=== PATIENT | female | born 1960 | race Caucasian/White ===

== ENCOUNTER → 2016-08-27 | Outpatient (CLI) | payer OTHER ==
[2016-08-27 15:02] LABS: Anion Gap 11 mmol/L; Blood Urea Nitrogen 20 mg/dL (7-17); Carbon Dioxide 26 mmol/L (22-30); Chloride 105 mmol/L (98-107); Glucose 104 mg/dL (74-99); Non-African American GFR(MDRD) >60 (>60 ml/min/1.73 sqM); Potassium 3.8 mmol/L (3.5-5.1); Sodium 142 mmol/L (137-145)
[2016-08-27 15:07] LABS: Basophils # (A) 0.1 k/uL (0-0.2); Basophils % (A) 1 %; CH 30.7; CHCM 33.5; Eosinophils # (A) 0.4 k/uL (0-0.7); Eosinophils % (A) 5 %; HCT 43.7 % (34.0-46.0); HDW 2.15; HGB 14.3 gm/dL (11.4-16.0); Luc # (Auto) 0.21; Luc % (Auto) 3; Lymphocytes # (A) 2.2 k/uL (1.0-4.8); Lymphocytes % (A) 28 %; MCH 30.2 pg (25.0-35.0); MCHC 32.8 g/dL (31.0-37.0); Monocytes # (A) 0.3 k/uL (0-1.0); Monocytes % (A) 4 %; Neutrophils # (A) 4.7 k/uL (1.3-7.7); Neutrophils % (A) 60 %; RBC 4.75 m/uL (3.80-5.40); RDW 12.8 % (11.5-15.5); WBC 7.9 k/uL (3.8-10.6)
== END | disposition home or self-care (01) ==
LOC: LABPAT 14:04
PROVIDERS: ATTEND Obstetrics & Gynecology
DX: Z01.818 Encounter for other preprocedural examination (principal); N81.4 Uterovaginal prolapse, unspecified; I10 Essential (primary) hypertension
CPT/HCPCS: 80051; 82565; 82947; 84520; 85025; 86850; 86900; 86901; 87086; 93005

== ENCOUNTER 2016-09-04 07:27 | Day surgery (SDC) | payer OTHER ==
[2016-08-30 15:58] VITALS: BMI 32.1
--- NOTE | 2016-09-03 08:38 | HP ---
DATE OF ADMISSION: 09/04/2016 This is a 56-year-old white female, 4, para 3-0-1-3, who presented for evaluation with complaint of increasing urine leakage with cough, sneeze and laugh. She was evaluated by Dr. Jaime and they have elected to proceed with transvaginal tape sling. She presented to my care with question of utility vaginal hysterectomy and cystocele repair at the same time. Patient is currently sexually active, she denies dyspareunia. She does admit to an increasing heaviness, fullness and bulge of the perineal body. She has had no postmenopausal bleeding, no vasomotor symptoms, but does report increased pelvic pressure. Past medical history is significant for hypertension and thyroid disease. PAST SURGICAL HISTORY: Bunionectomy in 1993, excision of ectopic in the past, right breast lumpectomy of benign pathology 2015, thyroidectomy 2011. CURRENT MEDICATIONS: 1. Black cohosh orally daily. 2. Calcium 600 mg pills twice daily. 3. L-thyroxine 150 ( ) daily. 4. Lisinopril 40 mg daily. 5. Norvasc 10 mg daily. 6. Pravastatin 20 mg once daily. 7. Triamterene hydrochlorothiazide 37.5/25 mg capsules once daily. 8. Venlafaxine 37.5 mg extended release tablets once daily. ALLERGIES: None known. FAMILY HISTORY: Significant for breast cancer in her mother and aunt. REPRODUCTIVE HISTORY: Vaginal deliveries x3, excision of ectopic in the past, side unknown. SOCIAL HISTORY: The patient is currently a smoker 1 pack per day. She admits to light alcohol use, denies recreational drug use. Review of systems is otherwise negative. On exam, this is a pleasant white female. She is 5 feet 10-1/2 inches, 234 pounds., BMI 33, blood pressure 124/80. HEENT exam reveals normal range of motion in the neck, no obvious lymphadenopathy, no thyromegaly. Good dentition. Breast exam reveals them to be bilaterally symmetric to inspection, no skin changes, nipple discharge, axillary adenopathy or discernible lesions or masses. Abdomen is soft, moderately obese, nontender, no hepatosplenomegaly, no CVA tenderness, no hernias. Chest is clear to auscultation in all hills anteriorly and posteriorly. Cardiac exam reveals regular rate and rhythm with no murmur, click or rub. Genitourinary examination reveals a grade 2 to 3 cystocele, normal external genitalia, normal multiparous-appearing cervix, a grade 2 to 3 uterine prolapse is noted. No adnexal tenderness or fullness. Rectal exam reveals no obvious rectocele, good sphincter tone, FIT negative stool. Neurologic and psychiatric examinations are intact fully. IMPRESSION: Genuine stress urinary incontinence, cystocele, uterine prolapse, all increasingly symptomatic, patient wishing surgical repair. PLAN: I reviewed with the patient in detail the risks, benefits, and alternatives of this repair. We have reviewed the risk of bleeding, infection, perforation or damage to bowel, bladder, ureters, indeed any pelvic or abdominal organs. Second opinion has been offered and declined. The ACOG pamphlet on this procedure have been given to the patient for her thorough review. We reviewed the risks of anesthesia, aspiration, nerve damage or even . All questions answered to the patient's full satisfaction, and I believe she understands our discussion with no further question or concerns.
[~2016-09-04 07:27] MED LIST: DEXAMETHASONE SOD PHOSPHATE 10 MG/ML 1 ML VIAL IV ONE; HYDROmorphone 1 MG/ML 1 ML SYRINGE IVP PRN; MIDAZOLAM 2 MG/2 ML VIAL IV PRN; ONDANSETRON 4 MG/2 ML VIAL IVP ONE; ceFAZolin 2 GM in SODIUM CHLORIDE 0.9% 100 ML IVPB ONE
[2016-09-04] MEDS ORDERED: LIDOCAINE 1% 20 ML VIAL (10MG/ML) FOR IV START INTRADERMA ONE (08:16)
[2016-09-04] MEDS: LACTATED RINGERS 1,000 ML IV SCH ×2 (08:16→17:25)
[2016-09-04] MEDS ORDERED: SCOPOLAMINE 1.5MG/72HR PATCH TRANSDERM ONE (08:24)
[2016-09-04] MEDS ORDERED: MIDAZOLAM 2 MG/2 ML VIAL ONE (09:21)
[2016-09-04] MEDS ORDERED: MORPHINE SULFATE (PF) 0.3 MG/0.3 ML SYR ONE (09:21)
[2016-09-04] MEDS ORDERED: fentaNYL (PF) 50 MCG/ML 2 ML AMP ONE (09:21)
[2016-09-04] MEDS ORDERED: VASOPRESSIN 20 UNIT/ML 1 ML VIAL SQ ONE (09:40)
[2016-09-04] MEDS ORDERED: BACITRACIN 500 UNIT/GM OINT 28.4 GM TUBE TOPICAL ONE (09:41)
[2016-09-04] MEDS: GENTAMICIN 120 MG in SODIUM CHLORIDE 0.9% 100 ML IVPB ONE ×2 (09:42→09:45)
[2016-09-04] MEDS ORDERED: LACTATED RINGERS 1,000 ML IV ONE ×2 (10:13)
[2016-09-04] MEDS ORDERED: ONDANSETRON 4 MG/2 ML VIAL IVP PRN (10:49)
[2016-09-04] MEDS ORDERED: Acetaminophen-Codeine 300-30mg TAB PO PRN (10:49)
[2016-09-04] MEDS ORDERED: SIMETHICONE 80 MG CHEWABLE PO PRN (10:49)
[2016-09-04] MEDS ORDERED: IBUPROFEN 600 MG TAB PO PRN (10:49)
[2016-09-04] MEDS ORDERED: KETOROLAC 30 MG/ML 1 ML VIAL IVP PRN (10:49)
--- NOTE | 2016-09-04 10:49 | P.OP ---
Date of Procedure: 09/04/16 Preoperative Diagnosis: Mixed urinary incontinence, cystocele, uterine prolapse Postoperative Diagnosis: Same, normal-appearing ovaries, suspicion of bladder cancer per Dr. Jaime Procedure(s) Performed: Vaginal hysterectomy, cystocele repair. Anesthesia: spinal Surgeon: Betsey Kim Production Engineer #1: Anisa Mendez Estimated Blood Loss (ml): 125 IV fluids (ml): 1,000 Urine output (ml): 150 Pathology: other Condition: stable (Cervix and uterus) Disposition: PACU Description of Procedure: Patient is brought to the operating suite and a spinal with Duramorph is placed without difficulty. Preoperative antibiotics are given. The appropriate timeout was performed to assure proper patient and procedural identification. Patient is placed in the dorsal lithotomy position, the cervix, vagina, perineum are all prepped and draped in the usual sterile fashion. Weighted speculum was placed into the vagina. Bladder is drained for approximately 150 mL of clear yellow urine. Anterior lip of the cervix is grasped with a double- tooth tenaculum. Cervix is injected circumferentially with dilute Pitressin solution. A [place] blade scalpel was used to incise the mucosa with a V like positioning in the back. A sponge was used to keep the mucosa swept well from the operative field to avoid bladder and/or ureteral injury. Peritoneum was entered at 6:00, suture tied with 2-0 Vicryl and the large billed speculum was placed. The right uterosacral cardinal ligament is identified, clamped cut and held with a 0 Vicryl suture. The same is performed on the left side. Vessels are identified , clamped cut and suture ligated. 2 additional pedicles are taken superior to the vessels. The uterus is then "walked out" posteriorly. Anterior peritoneum was entered. Leanne clamps are placed across the final pedicles and the uterus and cervix are removed. A sponge stick is used to evaluate the ovaries, these appear atrophic and normal to inspection and therefore left in situ. Hemostasis is very good. The billed speculum is then replaced the shallow speculum and the 2-0 Vicryl suture is brought around circumferentially to close the peritoneum in a pursestring fashion. The uterosacral cardinal ligaments are then brought across to the opposite ligament and vaginal mucosa, closing the vaginal vault. An additional [id number] sutures taken inferior to this for vaginal cough closure. The anterior peritoneum was then held with Allis clamps. The mucosa is injected with the same dilute Pitressin solution. Metzenbaum scissors are used in the midline to undermine and then open the mucosa. Allis clamps are used to hold the mucosa laterally bilaterally. The Horton catheter is then placed into the bladder and the urine is noted to be clear. Dr. Jordan then hips to perform his transvaginal tape procedure, please see dictated dictation. When his procedure is completed, 2-0 Vicryl suture is used to close the anterior vaginal mucosa and a running locking stitch. The vagina is packed with one- inch iodophor gauze. Dr. Jordan then proceeded with his cystoscopy, please see separately dictated report for details. Patient is brought back to the recovery room in very good condition with stable vital signs. Blood pressure is 99/63, pulse 75, 100% O2 sat, respirations 14.
--- NOTE | 2016-09-04 11:17 | P.OP ---
Date of Procedure: 09/04/16 Preoperative Diagnosis: Mixed Urinary Incontinence Postoperative Diagnosis: Same, Bladder Tumors Procedure(s) Performed: Obtryx Transobturator Sling, Cystoscopy with Excisional Biopsies. Anesthesia: CHERELLE Surgeon: Jonathon Jaime Highway Construction Inspector #1: Betsey Kim Estimated Blood Loss (ml): 125 Pathology: other (2 bladder tumors.) Condition: stable Disposition: PACU Indications for Procedure: She is a 56 year old female with mixed incontinence, which requires the use of 1 -2 pads daily. The stress component is predominant. Examination reveals a Grade 2 cystocele, along with urethral hypermobility. She is scheduled to undergo an Obtryx TOT sling, and Dr. Kim will perform a TVH with anterior repair. The procedure was reviewed with the patient in detail, including the rationale for the procedure, alternative treatment options, and potential risks. The controversy regarding the use of synthetic slings was discussed. I also explained to her the possibility that her urgency will worsen following the procedure. Operative Findings: Small papillary tumor cephalad to the right ureteral orifice. Pedunculated papillary tumor arising from left posterior vesical neck. Description of Procedure: I entered the operating room as Dr. Kim was completing the vaginal hysterectomy. The patient was positioned in the dorsal lithotomy position, with her legs supported in candycane stirrups. The patient's condition was stable. After completing the hysterectomy, Dr. Kim exposed the cystocele with a midline vaginal incision. The dissection was continued in the submucosal plane laterally on each side, to the inferior pubic ramus. The scalpel was used to make bilateral groin incisions at the level of the clitoris. Subcutaneous tissues were spread with a hemostat. Each of the helical needles were passed through the respective groin incision, and turned such that the needle tip wrapped around the pubis. The needle tips were guided digitally into the vaginal incision. The Obtryx graft, which had been previously soaked in antibiotic solution, was secured to the needle tips in the standard fashion. The needles were then withdrawn, and the position of the graft was adjusted such that it overlie the mid urethra, as desired. With a hemostat placed between the graft and the urethra to prevent tension of the graft over the urethra, the plastic sheath was removed from the ends of the graft. The ends of the graft were cut beneath the skin incisions, and these incisions were closed using 4-0 Vicryl suture in a subcuticular fashion. Hemostasis within the vaginal incision was adequate, and Dr. Kim then proceeded to complete the cystocele repair. Vaginal packing was placed. Cystoscopy was performed. The 30 lens was used to introduce the 19-Portuguese Storz cystoscopic sheath through the urethra and into the bladder under direct vision. The urethra and bladder were unremarkable. There was no evidence of perforation. Both ureteral orifices were of normal anatomic location and configuration, and clear urine effluxed from both. A small papillary tumor was seen cephalad to the right ureteral orifice. A pedunculated papillary tumor arose from the left posterior vesicle neck. Biopsy forceps were used to excise each of these lesions. The tissue was saved and sent for pathologic examination. The Bugbee electrode was used to fulgurate the biopsy sites, obtaining excellent hemostasis. The Horton catheter was replaced into the bladder. The return was clear. All sponge and needle counts were correct. The patient tolerated the procedure well was taken to the recovery room in stable condition. EBL and Fluids given reflect the entire procedure.
[2016-09-04] MEDS ORDERED: NALOXONE 0.4 MG/ML 1 ML VIAL IV PRN (11:51)
[2016-09-04] MEDS ORDERED: MORPHINE SULFATE 4 MG/ML SYRINGE IVP PRN (11:51)
[2016-09-04] MEDS ORDERED: NALBUPHINE 10 MG/ML AMPUL IV PRN (11:51)
[2016-09-04] MEDS ORDERED: ALBUTEROL NEBULIZED 2.5 MG/3 ML INHALATION PRN (12:50)
[2016-09-04] MEDS: diphenhydrAMINE 50 MG/ML 1 ML VIAL IVP PRN ×2 (14:54→21:30)
[2016-09-04] MEDS ORDERED: ceFAZolin 1 GM in SODIUM CHLORIDE 0.9% 100 ML IVPB SCH (16:00)
[2016-09-04] MEDS: ceFAZolin 1,000 MG in DEXTROSE/WATER 1 50ML.BAG IVPB SCH ×2 (17:18→17:25)
[2016-09-04] MEDS ORDERED: GENTAMICIN IN NACL ISO-OSM PMX 80 MG in SALINE 1 100ML.BAG IVPB ONE (18:00)
[2016-09-04] MEDS ORDERED: GENTAMICIN 80 MG in SODIUM CHLORIDE 0.9% 100 ML IVPB ONE (18:00)
[2016-09-04] MEDS ORDERED: VENLAFAXINE HCL 37.5 MG TAB PO SCH (21:00)
[2016-09-05] MEDS ORDERED: LEVOTHYROXINE 75 MCG TAB PO SCH (06:30)
--- NOTE | 2016-09-05 07:56 | P.DS ---
Providers Date of admission: 09/04/16 Expected date of discharge: 09/05/16 Attending physician: Betsey Kim Primary care physician: [facility] Course: This is a 56-year-old white female who presented with a history of continued and increasing mixed urinary incontinence. Examination also revealed a uterine prolapse and cystocele. Decision was made to proceed with vaginal hysterectomy , cystocele repair, and transvaginal tape. Please see dictated history and physical for details. Patient was admitted, she received a spinal with Duramorph, and underwent vaginal hysterectomy, cystocele repair, and transvaginal tape procedure. She did well intraoperatively. Postoperative cystoscopy per Dr. Jordan did reveal bladder tumors, biopsies were performed, please see both of our dictated operative note for details. Ovaries appeared normal to inspection bilaterally and therefore were left in situ. Vagina was packed with a 1 inch iodophor gauze. Patient did well intraoperatively. This morning the Horton catheter has been removed, the vaginal packing is removed , patient's activity has been increased. She is tolerating regular food, passing flatus, and ambulating without issue. Bladder training has commenced. Pain is well controlled. Vital signs are stable and patient has been afebrile. Plan is for likely discharge home later today. She will use [id number]-[id number] ibuprofen products as needed for pain. I've asked her to call with any fevers shakes or chills, foul smelling or copious vaginal discharge, with any pain not alleviated by uwom-bwc-irttiah products, or indeed with any concerns. I will see her in the office in 2 weeks, patient will follow-up with Dr. Jordan as per his recommendations. Patient Condition at Discharge: Good Plan - Discharge Summary Discharge Medication List Levothyroxine Sodium [Synthroid] 150 mcg PO DAILY 08/30/16 [History] Lisinopril 40 mg PO DAILY 08/30/16 [History] Pravastatin Sodium [Pravachol] 20 mg PO DAILY 08/30/16 [History] Triamterene-Hctz 37.5-25Mg [Dyazide 37.5-25 Capsule] 1 cap PO DAILY 08/30/16 [ History] Venlafaxine HCl [Effexor] 37.5 mg PO HS 08/30/16 [History] amLODIPine [Norvasc] 10 mg PO DAILY 08/30/16 [History] Follow up Appointment(s)/Referral(s): Betsey Kim MD [STAFF PHYSICIAN] - 2 Weeks
[2016-09-05] MEDS: ceFAZolin 1,000 MG in DEXTROSE/WATER 1 50ML.BAG IVPB SCH (08:13)
[2016-09-05] MEDS ORDERED: PRAVASTATIN SODIUM 20 MG TAB PO SCH (09:00)
[2016-09-05 09:43] VITALS: TEMP 98.4
[2016-09-05 12:52] VITALS: BP 115/70; PULSE 72; RESP 18
--- NOTE | 2016-09-05 14:26 | P.PN ---
Progress Note - Text POD #1, s/p TVH/Obtryx sling. Horton catheter was removed this morning. Since that time, she has coughed and sneezed, and has experienced no urinary leakage. She has been able to void without difficulty, and bladder emptying is completely. The incisions are dry and intact. She is afebrile with stable vital signs. She was relatively free of discomfort. She will be discharged home and follow-up in one week. Keflex was prescribed, and postoperative instructions were given.
== END 2016-09-05 12:55 | disposition home or self-care (01) ==
LOC: OR 07:27 → 6PED 11:04 → OR 09-05 12:55
PROVIDERS: ATTEND Obstetrics & Gynecology
DX: N81.2 Incomplete uterovaginal prolapse (principal); N39.46 Mixed incontinence; D30.3 Benign neoplasm of bladder; N84.0 Polyp of corpus uteri; N85.01 Benign endometrial hyperplasia; D26.1 Other benign neoplasm of corpus uteri; I10 Essential (primary) hypertension; E03.9 Hypothyroidism, unspecified; E78.5 Hyperlipidemia, unspecified; F17.200 Nicotine dependence, unspecified, uncomplicated; N97.1 Female infertility of tubal origin; Z79.899 Other long term (current) drug therapy
CPT/HCPCS: 57288; 52204; 58260; 86900; 86901; 88305; 86850; 88307; C1771; J1580 ×2; J2250; J1200; J1100; J0690 ×2; J2405; J2274; J3010; J1885

== ENCOUNTER 2020-01-26 11:13 | Day surgery (SDC) | payer OTHER ==
[2020-01-26 11:38] VITALS: RESP 16; TEMP 97.9
[2020-01-26] MEDS ORDERED: LIDOCAINE 1% INJ 10MG/ML (20 ML MDV) ONE (11:58)
[2020-01-26 12:46] VITALS: BP 138/62; PULSE 87
--- NOTE | 2020-01-26 13:03 | IR ---
EXAMINATION TYPE: IR cvc insert >=5 years DATE OF EXAM: 01/26/2020 COMPARISON: NONE CLINICAL HISTORY: Lung carcinoma Needs long-term intravenous access for therapy. PROCEDURE: Hand hygiene obtained with soap and water and alcohol-based hand rub. After informed consent, the skin overlying the left basilic vein was localized with ultrasound and no gale to be compressible and patent. An ultrasound image was obtained and submitted on the patient's c lopez. The overlying skin was prepped and draped and Lidocaine was used for local anesthesia. A skin lili was made with a scalpel. Access was gained to the vein under ultrasound guidance with a 21 gau [employer] needle and a 0.018 inch wire was advanced. Access site was dilated with Peel-Away sheath and cath eter tailored to the appropriate length and advanced such that the distal tip is at the cavoatrial ju nction. Spot image was obtained verifying placement. Catheter was fixed to the skin and a sterile d ressing was placed following hemostasis. Catheter was aspirated and flushed with saline. Patient wa s discharged in stable condition without complication.Maximal barrier technique is utilized. Ultraso und image is documented on the chart. Ultrasound used with sterile technique. Fluoro time and fluoroscopic images submitted to document procedure: 28 intraoperative images, 0.1 mi nutes fluoroscopy time IMPRESSION: STATUS POST ULTRASOUND AND FLUOROSCOPIC GUIDED PICC LINE PLACEMENT, READY FOR USE. THIS PROCEDURE WAS PERFORMED BY THE UNDERSIGNED.
== END 2020-01-26 12:47 | disposition home or self-care (01) ==
LOC: CATHCVL 11:13
PROVIDERS: ATTEND Radiology Diagnostic Radiology
DX: C34.91 Malignant neoplasm of unspecified part of right bronchus or lung (principal); I10 Essential (primary) hypertension; J44.9 Chronic obstructive pulmonary disease, unspecified; Z87.891 Personal history of nicotine dependence; C96.9 Malignant neoplasm of lymphoid, hematopoietic and related tissue, unspecified; Z92.21 Personal history of antineoplastic chemotherapy; Z90.2 Acquired absence of lung [part of]; Z79.1 Long term (current) use of non-steroidal anti-inflammatories (NSAID); Z79.899 Other long term (current) drug therapy
CPT/HCPCS: 36573; C1751; C1769

== ENCOUNTER 2020-02-24 13:59 | Observation (INO) | payer OTHER ==
[2020-02-24] MEDS ORDERED: diphenhydrAMINE 50 MG/ML 1 ML VIAL IVP STA (14:59)
[2020-02-24] MEDS ORDERED: SODIUM CHLORIDE 0.9% 2,000 ML IV STA (14:59)
[2020-02-24 15:30] LABS: Basophils # (A) 0.1 k/uL (0-0.2); Basophils % (A) 1 %; Calcium 9.4 mg/dL (8.4-10.2); Eosinophils # (A) 0.1 k/uL (0-0.7); Eosinophils % (A) 1 %; HCT 35.5 % (34.0-46.0); HGB 11.3 gm/dL (11.4-16.0); Lymphocytes # (A) 2.4 k/uL (1.0-4.8); Lymphocytes % (A) 13 %; MCH 30.2 pg (25.0-35.0); MCHC 31.9 g/dL (31.0-37.0); MCV 94.6 fL (80.0-100.0); Magnesium 1.8 mg/dL (1.6-2.3); Mean Platelet Volume 7.7; Monocytes # (A) 0.3 k/uL (0-1.0); Monocytes % (A) 2 %; Neutrophils # (A) 15.7 k/uL (1.3-7.7); Neutrophils % (A) 84 %; Platelet Count 214 k/uL (150-450); Potassium 4.3 mmol/L (3.5-5.1); RBC 3.75 m/uL (3.80-5.40); RDW 15.8 % (11.5-15.5); Total Bilirubin 0.5 mg/dL (0.2-1.3); WBC 18.7 k/uL (3.8-10.6)
--- NOTE | 2020-02-24 15:34 | ED ---
Nausea/Vomiting/Diarrhea HPI - General Source: patient, RN notes reviewed, old records reviewed Mode of arrival: wheelchair Limitations: no limitations <Cayla Arias - Last Filed: 02/24/20 17:23> <Dianne Whelan - Last Filed: 02/28/20 22:16> - General Chief complaint: Nausea/Vomiting/Diarrhea Stated complaint: NVD Time Seen by Provider: 02/24/20 14:29 - History of Present Illness Initial comments: 39-year-old female presents emergency department today for evaluation for complaints of nausea vomiting diarrhea since her last chemo treatment on Saturday. She reports she's failing leg cramps feeling dizzy and lightheaded. She reports she's been treated for lung cancer. Her oncologist is Dr. Miles. Patient denies any chest pain shortness of breath this time. Denies any localized abdominal pain. She completed dehydration. (Cayla Arias) - Related Data Home Medications Medication Instructions Recorded Confirmed Levothyroxine Sodium [Synthroid] 150 mcg PO DAILY 08/30/16 02/24/20 amLODIPine [Norvasc] 10 mg PO DAILY 08/30/16 02/24/20 lisinopriL 40 mg PO DAILY 08/30/16 02/24/20 Albuterol Inhaler [Ventolin Hfa 2 puff INHALATION RT-QID PRN 01/26/20 02/24/20 Inhaler] Montelukast [Singulair] 10 mg PO HS 01/26/20 02/25/20 Meloxicam [Mobic] 15 mg PO DAILY 02/24/20 02/24/20 OLANZapine [ZyPREXA] 5 mg PO HS 02/24/20 02/24/20 Omeprazole 40 mg PO AC-BRKFST 02/24/20 02/24/20 Ondansetron Odt [Zofran ODT] 4 mg PO Q6H PRN 02/24/20 02/24/20 Pravastatin Sodium [Pravachol] 40 mg PO DAILY 02/24/20 02/24/20 Sennosides/Docusate Sodium 1 tab PO HS PRN 02/24/20 02/24/20 [Senna-S 8.6-50 mg Tablet] Triamterene-Hctz 37.5-25Mg 1 tab PO DAILY 02/24/20 02/24/20 [Maxzide 37.5-25] Varenicline [Chantix Continuing 1 mg PO BID 02/24/20 02/24/20 Pack] Venlafaxine HCl [Effexor XR] 75 mg PO DAILY 02/24/20 02/24/20 dexAMETHasone [Dexamethasone] 4 mg PO DIRECTED 02/24/20 02/24/20 Allergies Allergy/AdvReac Type Severity Reaction Status Date / Time No Known Allergies Allergy Verified 02/24/20 17:54 Review of Systems ROS Other: All systems not noted in ROS Statement are negative. <Cayla Arias - Last Filed: 02/24/20 17:23> ROS Other: All systems not noted in ROS Statement are negative. <Dianne Whelan - Last Filed: 02/28/20 22:16> ROS Statement: Those systems with pertinent positive or pertinent negative responses have been documented in the HPI. Past Medical History Past Medical History: Cancer, Hyperlipidemia, Hypertension, Thyroid Disorder Additional Past Medical History / Comment(s): lung cancer History of Any Multi-Drug Resistant Organisms: None Reported Past Surgical History: Breast Surgery, Orthopedic Surgery, Tubal Ligation Additional Past Surgical History / Comment(s): RT BREAST BX X 2. BILAT BUNION ECTOMY. THYROIDECTOMY Past Anesthesia/Blood Transfusion Reactions: Motion Sickness, Postoperative Nausea & Vomiting (PONV) Past Psychological History: No Psychological Hx Reported Smoking Status: Former smoker Past Alcohol Use History: Occasional Past Drug Use History: None Reported - Past Family History Mother Family Medical History: Cancer <Cayla Arias - Last Filed: 02/24/20 17:23> General Exam Limitations: no limitations Head exam: Present: atraumatic, normocephalic, normal inspection Eye exam: Present: normal appearance, PERRL, EOMI. Absent: scleral icterus, conjunctival injection, periorbital swelling ENT exam: Present: normal exam, mucous membranes moist Neck exam: Present: normal inspection. Absent: tenderness, meningismus, lymphad enopathy Respiratory exam: Present: normal lung sounds bilaterally. Absent: respiratory distress, wheezes, rales, rhonchi, stridor Cardiovascular Exam: Present: regular rate, normal rhythm, normal heart sounds. Absent: systolic murmur, diastolic murmur, rubs, gallop, clicks GI/Abdominal exam: Present: soft, normal bowel sounds. Absent: distended, tenderness, guarding, rebound, rigid Extremities exam: Present: normal inspection, full ROM, normal capillary refill. Absent: tenderness, pedal edema, joint swelling, calf tenderness Back exam: Present: normal inspection Neurological exam: Present: alert, oriented X3, CN II-XII intact Psychiatric exam: Present: normal affect, normal mood Skin exam: Present: warm, dry, intact, normal color. Absent: rash <Cayla Arias - Last Filed: 02/24/20 17:23> - General Exam Comments Initial Comments: 59-year-old field. No distress. (Cayla Arias) Course Vital Signs 02/24/20 02/24/20 02/24/20 14:02 16:57 19:23 Temperature 97.7 F 97.9 F Pulse Rate 109 H 83 64 Respiratory 18 20 18 Rate Blood Pressure 112/76 138/89 121/78 O2 Sat by Pulse 98 100 99 Oximetry Medical Decision Making - Lab Data Result diagrams: 02/24/20 15:06 02/24/20 15:06 - Radiology Data Radiology results: report reviewed <Cayla Arias - Last Filed: 02/24/20 17:23> - Lab Data Result diagrams: 02/24/20 15:06 02/24/20 15:06 <Dianne Whelan - Last Filed: 02/28/20 22:16> - Medical Decision Making Patient is a 59-year-old female with a history of chemotherapy on Saturday for pramod g cancer. She presents with nausea vomiting diarrhea since that time. She went feeling weak. She was given IV fluids 2 L bolus labwork obtained. Patient complains of no pain or fever. Patient's white blood cell count was noted to be elevated 18,000. She will have blood cultures completed. Due to the nausea vomiting Patient does have evidence of HPI. GFR is decreased at 42 from previously normal. Patient will be given continued fluid boluses. We will obtain blood cultures and have these pending. She has no pain and fever for source of infection this time will be for the blood culture result from both picc line and peripheral site. (Cayla Arias) Reinier was available for consultation in the emergency department. The history and physical exam were done by the midlevel provider. I was consulted for this patients care. I reviewed the case with the midlevel provider and based on their presentation of the patient, I agree with the assessment, medical decision making and plan of care as documented. Chart was dictated using [employer] dictation software. Attempts were made to correct any dictation errors however some typographical errors may persist. Patient was seen during a national state of emergency due to the Covid-19 pandemic. (Dianne Whelan) - Lab Data Lab Results 02/24/20 02/24/20 02/24/20 Range/Units 15:06 15:06 15:06 WBC 18.7 H (3.8-10.6) k/uL RBC 3.75 L (3.80-5.40) m/uL Hgb 11.3 L (11.4-16.0) gm/dL Hct 35.5 (34.0-46.0) % MCV 94.6 (80.0-100.0) fL MCH 30.2 (25.0-35.0) pg MCHC 31.9 (31.0-37.0) g/dL RDW 15.8 H (11.5-15.5) % Plt Count 214 (150-450) k/uL Neutrophils % 84 % Lymphocytes % 13 % Monocytes % 2 % Eosinophils % 1 % Basophils % 1 % Neutrophils # 15.7 H (1.3-7.7) k/uL Lymphocytes # 2.4 (1.0-4.8) k/uL Monocytes # 0.3 (0-1.0) k/uL Eosinophils # 0.1 (0-0.7) k/uL Basophils # 0.1 (0-0.2) k/uL Sodium 135 L (137-145) mmol/L Potassium 4.3 (3.5-5.1) mmol/L Chloride 102 (98-107) mmol/L Carbon Dioxide 25 (22-30) mmol/L Anion Gap 8 mmol/L BUN 41 H (7-17) mg/dL Creatinine 1.39 H (0.52-1.04) mg/dL Est GFR (CKD-EPI)AfAm 49 (>60 ml/min/1.73 sqM) Est GFR (CKD-EPI)NonAf 42 (>60 ml/min/1.73 sqM) Glucose 112 H (74-99) mg/dL Plasma Lactic Acid Michael (0.7-2.0) mmol/L Calcium 9.4 (8.4-10.2) mg/dL Magnesium 1.8 (1.6-2.3) mg/dL Total Bilirubin 0.5 (0.2-1.3) mg/dL AST 18 (14-36) U/L ALT 55 H (4-34) U/L Alkaline Phosphatase 150 H (38-126) U/L Total Protein 7.0 (6.3-8.2) g/dL Albumin 4.0 (3.5-5.0) g/dL Lipase 60 (23-300) U/L Urine Color Yellow Urine Appearance Clear (Clear) Urine pH 6.0 (5.0-8.0) Ur Specific Alpine 1.015 (1.001-1.035) Urine Protein Negative (Negative) Urine Glucose (UA) Negative (Negative) Urine Ketones Negative (Negative) Urine Blood Negative (Negative) Urine Nitrite Negative (Negative) Urine Bilirubin Negative (Negative) Urine Urobilinogen <2.0 (<2.0) mg/dL Ur Leukocyte Esterase Negative (Negative) 02/24/20 Range/Units 15:06 WBC (3.8-10.6) k/uL RBC (3.80-5.40) m/uL Hgb (11.4-16.0) gm/dL Hct (34.0-46.0) % MCV (80.0-100.0) fL MCH (25.0-35.0) pg MCHC (31.0-37.0) g/dL RDW (11.5-15.5) % Plt Count (150-450) k/uL Neutrophils % % Lymphocytes % % Monocytes % % Eosinophils % % Basophils % % Neutrophils # (1.3-7.7) k/uL Lymphocytes # (1.0-4.8) k/uL Monocytes # (0-1.0) k/uL Eosinophils # (0-0.7) k/uL Basophils # (0-0.2) k/uL Sodium (137-145) mmol/L Potassium (3.5-5.1) mmol/L Chloride (98-107) mmol/L Carbon Dioxide (22-30) mmol/L Anion Gap mmol/L BUN (7-17) mg/dL Creatinine (0.52-1.04) mg/dL Est GFR (CKD-EPI)AfAm (>60 ml/min/1.73 sqM) Est GFR (CKD-EPI)NonAf (>60 ml/min/1.73 sqM) Glucose (74-99) mg/dL Plasma Lactic Acid Michael 1.5 (0.7-2.0) mmol/L Calcium (8.4-10.2) mg/dL Magnesium (1.6-2.3) mg/dL Total Bilirubin (0.2-1.3) mg/dL AST (14-36) U/L ALT (4-34) U/L Alkaline Phosphatase (38-126) U/L Total Protein (6.3-8.2) g/dL Albumin (3.5-5.0) g/dL Lipase (23-300) U/L Urine Color Urine Appearance (Clear) Urine pH (5.0-8.0) Ur Specific Alpine (1.001-1.035) Urine Protein (Negative) Urine Glucose (UA) (Negative) Urine Ketones (Negative) Urine Blood (Negative) Urine Nitrite (Negative) Urine Bilirubin (Negative) Urine Urobilinogen (<2.0) mg/dL Ur Leukocyte Esterase (Negative) Disposition Is patient prescribed a controlled substance at d/c from ED?: No Time of Disposition: 17:26 <Cayla Arias - Last Filed: 02/24/20 17:23> <Dianne Whelan - Last Filed: 02/28/20 22:16> Clinical Impression: JOSE (acute kidney injury), Nausea & vomiting, Diarrhea, Leukocytosis, Chemotherapy induced nausea and vomiting, Lung cancer Disposition: ADMITTED IP TO THIS HOSP Condition: Stable
[2020-02-24 16:45] LABS: Appearance,Urine Clear (Clear); Bilirubin,Urine Negative (Negative); Blood,Urine Negative (Negative); Color,Urine Yellow; Glucose,Urine (UA) Negative (Negative); Ketones,Urine Negative (Negative); Leukocyte Esterase,Urine Negative (Negative); Nitrite,Urine Negative (Negative); Protein,Urine Negative (Negative); Specific Gravity,Urine 1.015 (1.001-1.035); Urobilinogen,Urine <2.0 mg/dL (<2.0)
[2020-02-24] MEDS ORDERED: METOCLOPRAMIDE 5 MG/ML 2 ML VIAL IVP STA (16:49)
[2020-02-24] MEDS ORDERED: ONDANSETRON 4 MG/2 ML VIAL IVP PRN (17:26)
[2020-02-24] MEDS ORDERED: NALOXONE 0.4 MG/ML 1 ML VIAL IV PRN (17:26)
[2020-02-24] MEDS ORDERED: IBUPROFEN 400 MG TAB PO PRN (17:26)
[2020-02-24] MEDS ORDERED: ACETAMINOPHEN TAB 325 MG TAB PO PRN (17:26)
[2020-02-24] MEDS ORDERED: HYDROcodone/APAP 5-325MG 1 EACH TAB PO PRN (17:26)
[2020-02-24] MEDS ORDERED: MORPHINE SULFATE 4 MG/ML SYRINGE IV PRN (17:26)
[2020-02-24] MEDS: SODIUM CHLORIDE 0.9% 1,000 ML IV SCH (18:15)
[2020-02-24 19:27] VITALS: RESP 18
[2020-02-25] MEDS: SODIUM CHLORIDE 0.9% 1,000 ML IV SCH (03:10)
[2020-02-25 11:12] VITALS: BP 119/81; PULSE 89; TEMP 98
== END 2020-02-25 17:10 | disposition home or self-care (01) ==
LOC: EC 13:59 → 6NMEDSUR 17:10
PROVIDERS: ADMIT Hospitalist; ATTEND Hospitalist
DX: R11.2 Nausea with vomiting, unspecified (principal); T45.1X5A Adverse effect of antineoplastic and immunosuppressive drugs, initial encounter; C34.90 Malignant neoplasm of unspecified part of unspecified bronchus or lung; D72.829 Elevated white blood cell count, unspecified; E78.5 Hyperlipidemia, unspecified; E86.0 Dehydration; E89.0 Postprocedural hypothyroidism; I10 Essential (primary) hypertension; N17.9 Acute kidney failure, unspecified; Z79.1 Long term (current) use of non-steroidal anti-inflammatories (NSAID); Z79.890 Hormone replacement therapy; Z85.118 Personal history of other malignant neoplasm of bronchus and lung; Z87.891 Personal history of nicotine dependence
CPT/HCPCS: 96361; 96374; 96375; 99285; 36415; 80053; 83605; 83690; 83735; 85025; 81003; 87040; G0378 ×2; J1200; J2765

== ENCOUNTER → 2024-01-31 | Outpatient (CLI) | payer OTHER ==
--- NOTE | 2024-01-31 15:52 | XR ---
EXAMINATION TYPE: XR chest 2V DATE OF EXAM: 01/31/2024 COMPARISON: None INDICATION: Lung cancer, presurgical testing TECHNIQUE: Frontal and lateral views of the chest are obtained. FINDINGS: The heart size is normal. The pulmonary vasculature is normal. The lungs are clear. Patient reported lung cancer in 2019 is not visible on the current exam IMPRESSION: 1. No acute pulmonary process. [facility], Workstation: [facility], 01/31/2024 3:49 PM
[2024-01-31 22:29] LABS: Appearance,Urine Clear (Clear); Bilirubin,Urine Negative (Negative); Blood,Urine Negative (Negative); Color,Urine Yellow (Yellow); Ketones,Urine Trace (Negative); Nitrite,Urine Negative (Negative); Specific Gravity,Urine 1.018 (1.001-1.030); Urobilinogen,Urine 0.2
== END | disposition home or self-care (01) ==
LOC: LABPAT 15:07
PROVIDERS: ATTEND Orthopaedic Surgery Orthopaedic Surgery of the Spine
DX: Z01.818 Encounter for other preprocedural examination
CPT/HCPCS: 71046; 81003; 87070; 93005

== ENCOUNTER → 2024-02-03 | Outpatient (CLI) | payer OTHER ==
[2024-02-03 14:08] LABS: INR 0.9 (<1.2); Partial Thromboplastin Time 24.8 sec (22.0-30.0); Prothrombin Time 10.1 sec (10.0-12.5)
[2024-02-03 20:26] LABS: Basophils # (A) 0.09 X 10*3/uL (0.00-0.10); Basophils % (A) 1.3 %; Eosinophils # (A) 0.31 X 10*3/uL (0.04-0.35); Eosinophils % (A) 4.6 %; HCT 41.3 % (37.2-46.3); HGB 13.7 g/dL (12.0-15.0); Lymphocytes # (A) 2.02 X 10*3/uL (0.90-5.00); Lymphocytes % (A) 29.7 %; MCH 32.5 pg (27.0-32.0); MCHC 33.2 g/dL (32.0-37.0); MCV 98.1 FL (80.0-97.0); Mean Platelet Volume 11.6 FL (9.5-12.2); Monocytes # (A) 0.35 X 10*3/uL (0.20-1.00); Monocytes % (A) 5.1 %; NRBC Per 100 WBC 0 X 10*3/uL (0.00-0.01); Neutrophils # (A) 4.02 X 10*3/uL (1.80-7.70); Neutrophils % (A) 59.2 %; Platelet Count 256 X 10*3/uL (140-440); RBC 4.21 X 10*6/uL (4.10-5.20); RDW 12.3 % (11.5-14.5)
[2024-02-03 20:49] LABS: BUN/Creat Ratio 11.73 Ratio (12.00-20.00); Blood Urea Nitrogen 17.6 mg/dL (9.0-27.0); Calcium 9.3 mg/dL (8.7-10.3); Carbon Dioxide 25.6 mmol/L (21.6-31.8); Chloride 105 mmol/L (96-109); Glucose 123 mg/dL (70-110); Sodium 140 mmol/L (135-145)
== END | disposition home or self-care (01) ==
LOC: LABPAT 12:20
PROVIDERS: ATTEND Orthopaedic Surgery Orthopaedic Surgery of the Spine
DX: Z01.818 Encounter for other preprocedural examination
CPT/HCPCS: 80048; 85025; 85610; 85730; 86850; 86900; 86901

== ENCOUNTER 2024-02-12 06:34 | Observation (INO) | payer OTHER ==
[2024-02-12] MEDS ORDERED: LIDOCAINE 1% (10MG/ML) FOR IV START INTRADERMA PRN (07:06)
[2024-02-12] MEDS: IV FLUID CONTINUATION 1,000 ML IV ONE ×3 (07:19→07:49)
[2024-02-12] MEDS: MIDAZOLAM 2 MG/2 ML VIAL IV ONE (07:59)
[2024-02-12] MEDS: ONDANSETRON 4 MG/2 ML VIAL IVP ONE (08:21)
[2024-02-12] MEDS ORDERED: ePHEDrine 50 MG/ML 1 ML VIAL ONE (08:24)
[2024-02-12] MEDS ORDERED: VASOPRESSIN 20 UNIT/ML 1 ML VIAL ONE (08:24)
[2024-02-12] MEDS: LACTATED RINGERS 1,000 ML IV SCH (08:24)
[2024-02-12] MEDS ORDERED: PHENYLEPHRINE-0.9% NACL SYG 1,000 MCG/10 ML SYRINGE ONE (08:24)
[2024-02-12] MEDS ORDERED: ROCURONIUM 10 MG/ML (5 ML VIAL) IV ONE (08:24)
[2024-02-12] MEDS ORDERED: CALCIUM CHLORIDE 100 MG/ML 10 ML SYRINGE ONE (08:24)
[2024-02-12] MEDS ORDERED: fentaNYL (PF) 50 MCG/ML 2 ML AMP ONE (08:24)
[2024-02-12] MEDS: SCOPOLAMINE 1 MG/72 HR PATCH TRANSDERM STA (08:24)
[2024-02-12] MEDS ORDERED: WATER FOR INJECTION, STERILE 10 ML VIAL IV ONE (08:24)
[2024-02-12] MEDS ORDERED: SUCCINYLCHOLINE CHLORIDE 200 MG/10 ML VIAL IV ONE (08:24)
[2024-02-12] MEDS ORDERED: TRANEXAMIC 1,000 MG/100ML-NACL PREMIX BAG ONE (08:24)
[2024-02-12] MEDS ORDERED: NEOSTIGMINE 1 MG/ML 10 ML VIAL ONE (08:24)
[2024-02-12] MEDS ORDERED: PHENYLEPHRINE 10 MG/ML VIAL ONE (08:24)
[2024-02-12] MEDS ORDERED: PROPOFOL 10 MG/ML 20 ML VIAL IV ONE (08:24)
[2024-02-12] MEDS ORDERED: GLYCOPYRROLATE 0.2 MG/ML 2 ML VIAL ONE (08:24)
[2024-02-12] MEDS ORDERED: LIDOCAINE 1% INJ 10MG/ML (20 ML MDV) ONE (08:24)
[2024-02-12] MEDS: ceFAZolin 1,000 MG in SODIUM CHLORIDE 0.9% IRRIGATIO 1,000 ML IRRIGATION PRN (08:29)
[2024-02-12] MEDS: BUPIVACAINE (PF) 0.25% 30 ML VIAL SQ ONE ×3 (08:33→08:59)
[2024-02-12] MEDS: LIDOCAINE 2% INJ 20 MG/ML SQ ONE ×3 (08:33→08:59)
[2024-02-12] MEDS: THROMBIN (BOVINE) 5,000 UNIT VIAL TOPICAL ONE ×2 (08:34→08:59)
[2024-02-12] MEDS ORDERED: ceFAZolin 1,000 MG in SODIUM CHLORIDE 0.9% IRRIGATIO 1,000 ML IRRIGATION PRN (08:49)
[2024-02-12] MEDS: LACTATED RINGERS 1,000 ML IV ONE ×2 (09:59→11:36)
[2024-02-12 12:35] LABS: Allen Test Performed? Yes
[2024-02-12 12:36] LABS: ABG Base Excess -8.2 mmol/L; ABG Glucose Whole Blood 181 mg/dL (75-99); ABG HCO3 18 mmol/L (21-25); ABG Hematocrit 29 % (34.0-46.0); ABG Ionized Calcium 4.5 mg/dL (4.5-5.3); ABG Lactic Acid Whole Blood 0.9 mmol/L (0.5-1.6); ABG Oxygen Saturation 98.7 % (94-97); ABG PCO2 40 mmHg (35-45); ABG PH 7.27 (7.35-7.45); ABG PO2 244 mmHg (83-108); ABG Potassium Whole Blood 3.1 mmol/L (3.4-4.5); ABG Sodium Whole Blood 142 mmol/L (135-146); ABG TCO2 18 mmol/L (19-24)
[2024-02-12] MEDS ORDERED: ONDANSETRON 4 MG/2 ML VIAL IVP PRN (13:12)
[2024-02-12] MEDS ORDERED: HYDROmorphone 0.5 MG/0.5 ML SYRINGE IVP PRN (13:12)
[2024-02-12] MEDS ORDERED: BENZOCAINE/MENTHOL LOZENG 1 EACH LOZENGE MUCOUS MEM PRN (13:12)
[2024-02-12] MEDS ORDERED: bisacodyL 10 MG SUPP RECTAL PRN (13:12)
--- NOTE | 2024-02-12 13:12 | P.OP ---
Date of Procedure: 02/12/24 Preoperative Diagnosis: Degenerative scoliosis, spondylolisthesis, spinal stenosis L3-4 L4-5 L5-S1, disc nation L3-4 L4-5 L5-S1, facet arthrosis, lower extremity radiculopathy Postoperative Diagnosis: Same Anesthesia: GETA Pathology: none sent Condition: stable Disposition: PACU Description of Procedure: DESCRIPTION OF PROCEDURE(S): BRIEF OPERATIVE NOTE Preoperative Diagnosis: Degenerative scoliosis, spondylolisthesis, spinal stenosis L3-4 L4-5 L5-S1, disc nation L3-4 L4-5 L5-S1, facet arthrosis, lower extremity radiculopathy Postoperative Diagnosis: Degenerative scoliosis, spondylolisthesis, spinal stenosis L3-4 L4-5 L5-S1, disc nation L3-4 L4-5 L5-S1, facet arthrosis, lower extremity radiculopathy Procedure: Laminectomy and decompression L3-4 L4-5 L5-S1 with bilateral foraminotomies Computer CT navigation aided Minimally invasive Posterior lateral decompression and facet fusion L3-4 L4-5 L5-S1 Minimally invasive Transforaminal lumbar interbody fusion for a 360 fusion L3-4 L4-5 L5-S1 Discectomy for decompression L3-4 L4-5 L5-S1 Placement of interbody graft L3-4 L4-5 L5-S1 Use of computer navigation for fusion Local autogenous bone grafting Aspiration of bone marrow from the vertebral body pedicle Use of bone graft extenders Surgeon: Dr. Werner [employer] Professor: Devan LONG who is present throughout the entire the case persistence during positioning, dissection, exposure, visualization, and all crucial elements of the case as well as closure. Anesthesia: General anesthesia per Dr. Castro Estimated blood loss: Approximately 250 mL, with approximately 55 cc given back through [employer] Complications: None apparent Components implanted: K2M minimally invasive [place] pedicle screw system withscrews measuring 6.5 mm in diameter to rods one [place] interbody cage with 10 mL of osteo amp bio4 bone graft substitute and 30 mL of the BX bone fibers to supplement the local autogenous bone graft and bone marrow aspirate Disposition: To recovery room in good stable condition. OPERATIVE INDICATIONS The patient has had severe issues at their lower extremity in her lower back over the past several years with significant worsening over the past several months. Over the past few months the patient had pain at their back and their lower extremities. The patient is having severe radicular symptoms at their lower extremity with weakness. She was having neurogenic claudication as well. The patient is having significant pain in their back. They are unable to obtain any comfort. We did aggressive conservative treatment with medications therapy and interventional pain management however thery were not having any relief. The patient also showed evidence of a listhesis with some dynamic instability along with her degenerative scoliosis and her spinal stenosis at multiple levels. The patient has been through conservative treatment. We discussed various treatment options including surgery, and the patient wishes to proceed with surgery We discussed the risk, patient's alternatives and benefits of surgery including but not limited to, risk of bleeding risk of infection, risk of need for further surgery, risk of decreased, loss of motion, muscle function, malunion nonunion, hardware failure, nerve damage, paralysis, heart attack, blindness and . They understood issues with the current pandemic and the possibility of exposure. OPERATIVE SUMMARY After discussing all the risks, patient alternatives and benefits at length, the patient elected to proceed with surgical intervention, signed informed consent, and presented for their procedure. The patient was seen and examined in the preoperative holding area and the surgical site was marked. The patient was given antibiotics and brought to the operating room. The patient was sedated and intubated by anesthesia in standard fashion. The patient was positioned on to the operating room table in a prone position on the appropriate frame which was well-padded and well molded. We were careful to pad any bony prominences and pressure points. We were careful to maintain the patient's cervical spine and good neutral alignment and position throughout. The patient was prepped and draped in a normal standard fashion. An appropriate timeout and keystone protocol performed. We were able to proceed with the surgery. The local wound area was infiltrated with local anesthetic. Over the right iliac crest I was able to make small stab incisions and establish a guidepin screw fixation to the iliac crest 2. I was able place the computer referencing device over the guidepins to establish an appropriate reference point for the Ziem CT navigation. We then were able to place patient in an appropriate drape and do a navigation spin for visualization and 3-D reconstruction of the lumbar spine. I was able utilize C-arm guidance and navigation to establish appropriate position over the pedicles bilaterally at the appropriate levels . With the appropriate levels confirmed at L3-4-5 and S1 was able to make small incisions over the appropriate pedicle sites bilaterally. Utilizing the computer navigation device I was able to establish bony landmarks at the right iliac crest for a bony reference point for the navigation device. I was able to establish a Jamshidi needle over the lateral aspect of the pedicle and advanced the trocar into the pedicle being careful not to breech superiorly inferiorly medially or laterally using computer navigation device. Position was confirmed regularly with AP and lateral images on C-arm and with the computer navigation device at the appropriate levels bilaterally. I was able to establish the trocar into the pedicle appropriately into the posterior aspect of the vertebral body bilaterally at the appropriate levels. This was done at each of the pedicle positions and each of the vertebrae. At the superior vertebrae I was able to take approximately 15 mL of bone aspiration for use later in the case to supplement the allograft and autograft bone. I was able place the guidewire into the trocar and into the vertebral body appropriately under C-arm guidance. Dissection was taken down over the wire to the appropriate starting position for the screw placed. The appropriate length screw was chosen, threaded over the guidewire and screwed appropriately into the pedicle and vertebral body under C-arm guidance in excellent alignment and position with good bony purchase. This is done at each of the screw sites at the appropriate levels at L3-4-5 and S1.. With the screws intact I extended the incision to connect the screw hole sites on the most symptomatic side left. I dissected down to establish access over the pars and lamina to the base of the spinous process. I started first at L5- S1 and then moved to L4-5 and then L3-4 similarly. I was able to expose the facet joint. The capsule the facet was taken down and showed some facet arthrosis at the joint. I was able to use a combination of curettes and Kerrison rongeurs and a high-speed drill to take down the facet joint and do a facetectomy. I was able get excellent foraminal decompression and central decompression with undermining across midline to perform a laminectomy centrally and contralaterally. I was able get good central decompression. The ligamentum flavum was taken down to further decompress centrally and at bilateral neural foramen. I was able to expose the disc space and visualize the traversing nerve root. Note was made of some disc protrusion and disc herniation that was abutting the traversing nerve root at the level causing further compression of the nerve root. I was able to establish a annulotomy at the appropriate level protecting soft tissue and neural structures. Note was made of some disc desiccation at the disc. I performed a complete discectomy with accommodation of curettes and rasps and scrapers. I was able get good endplate preparation at the disc space. I sized for the appropriate size interbody spacer protecting the soft tissue and neural structures. The wound was copiously irrigated and suctioned dry. There is no evidence of any dural tear or leak. I was able to pack the disc space with local autogenous bone graft as well as a small amount of bone graft which was also placed into the interbody cage itself. Protecting the soft tissue structures and neural structures I was able place the interbody cage in good alignment and good position with good fit and fill at the interbody space. Position was confirmed with C-arm guidance. This was done similarly at L4-5 S1 and then L4-5 then L3-4 Good hemostasis maintained. There is no evidence of any dural tear or leak. The wound was irrigated and suctioned dry. With the hardware intact, intraoperative C-arm imaging was again taken which showed good alignment and position of the hardware at the appropriate levels at L3-4-5 and S1. We were then able to measure, contour and place the rods and appropriate hardware bilaterally. I was able to place capcrews, tighten them down, and torque them with the torque screwdriver appropriately. With this intact I was able to place the local autogenous bone graft with additional bone graft enhancer as necessary into the posterior lateral gutters over the decorticated transverse processes and facet joints on the contralateral side. The remainder of the bone graft was placed over the facet joint on the contralat eral side after taking down the facet joint capsule. With the bone graft intact, a stable construct, and good decompression at the appropriate levels, we were able to proceed with closure. Good hemostasis was maintained. There is no evidence of dural tear or leak. The fascia was closed for a watertight closure. he subcuticular tissue was closed with absorbable suture. The wound was cleaned and dried and dressed with the appropriate dressing. The drapes were broken down. The patient was gently rolled back onto their hospital bed being careful to maintain their cervical spine and good neutral alignment and position. They were woken up by anesthesia, extubated, and brought to the recovery room in good stable condition. The patient will be admitted to the hospital for appropriate postoperative care, medical management and monitoring. We will continue to follow them closely about the postoperative course.
[2024-02-12] MEDS ORDERED: SENNOSIDES-DOCUSATE SODIUM 1 EACH TAB PO PRN (13:14)
[2024-02-12] MEDS: HYDROmorphone 0.5 MG/0.5 ML SYRINGE IVP PRN (13:35)
--- NOTE | 2024-02-12 14:20 | FL ---
EXAMINATION TYPE: FL guidance operating room DATE OF EXAM: 02/12/2024 HISTORY: Fluoroscopy time Fluoroscopy provided for procedure. IMPRESSION: 1. Fluoroscopy time. [facility], , 02/12/2024 2:18 PM
[2024-02-12] MEDS: SODIUM CHLORIDE 0.9% 1,000 ML IV SCH (15:49)
[2024-02-12] MEDS: HYDROmorphone 1 MG/ML 1 ML SYRINGE IVP PRN (16:21)
[2024-02-12] MEDS: CYCLOBENZAPRINE 10 MG TAB PO SCH (16:21)
--- NOTE | 2024-02-12 18:05 | XR ---
EXAMINATION TYPE: FL guidance operating room DATE OF EXAM: 02/12/2024 HISTORY: Fluoroscopy time Fluor oscopy provided for procedure. IMPRESSION: 1. Fluoroscopy time. L3-4/L5-S1 Fusion 25sec fluoro time [facility], , 02/12/2024 6:03 PM
[2024-02-12] MEDS: TOPIRAMATE 100 MG TAB PO SCH (20:44)
[2024-02-12] MEDS: MELATONIN 5 MG TABLET PO SCH (20:44)
[2024-02-12] MEDS: ATORVASTATIN 20 MG TAB PO SCH (20:44)
[2024-02-12] MEDS: HYDROcodone/APAP 10-325MG 1 EACH TAB PO PRN (20:44)
--- NOTE | 2024-02-13 02:55 | CONS ---
CONSULTATION HISTORY OF PRESENT ILLNESS: Medical consult obtained. Status post lumbar surgery per Dr. Werner. The patient has severe pain with lifting the leg and turning the leg. HOME MEDICATIONS: 1. Norvasc 10 mg daily. 2. Pravastatin 40 daily. 3. Synthroid 112 daily. 4. Wellbutrin XL 300 daily. 5. Topiramate 100 mg daily. 6. Lipitor 80 daily. 7. Aspirin 81 daily. 8. Cyclobenzaprine 10 mg daily. PAST MEDICAL HISTORY: Hypertension, dyslipidemia, hypothyroidism, lung cancer, indigestion, headaches, anxiety, dizziness, depression. ALLERGIES: No known drug allergies. REVIEW OF SYSTEMS: Otherwise negative. PHYSICAL EXAMINATION: VITAL SIGNS: Temperature 98.2, blood pressure 118/75, O2 of 98% on room air, pulse 74, respiratory rate 16 to 18. CARDIOVASCULAR: S1, S2. LUNGS: Clear. GI: Soft. ASSESSMENT: Lumbar radiculopathy, muscle spasm, hypertension. Continue current home medications. Probable use of muscle relaxers. She has severe pain. Continue current pain medications, use as tolerated. Increase pain medications if necessary. She has no chest pain or shortness of breath. She is medically stable at this time. MMODL / IJN: [id number] /
[2024-02-13] MEDS: LEVOTHYROXINE 112 MCG TAB PO SCH (06:24)
[2024-02-13 08:37] LABS: HCT 33.5 % (37.2-46.3); MCH 31.9 pg (27.0-32.0); MCHC 32.8 g/dL (32.0-37.0); MCV 97.1 FL (80.0-97.0); Mean Platelet Volume 11.4 FL (9.5-12.2); NRBC Per 100 WBC 0 X 10*3/uL (0.00-0.01); Platelet Count 157 X 10*3/uL (140-440); RBC 3.45 X 10*6/uL (4.10-5.20); RDW 12.8 % (11.5-14.5); WBC 8.72 X 10*3/uL (4.50-10.00)
[2024-02-13 08:38] LABS: Basophils # (A) 0.03 X 10*3/uL (0.00-0.10); Basophils % (A) 0.3 %; Eosinophils # (A) 0.03 X 10*3/uL (0.04-0.35); Eosinophils % (A) 0.3 %; Lymphocytes # (A) 1.17 X 10*3/uL (0.90-5.00); Lymphocytes % (A) 13.4 %; Monocytes # (A) 0.55 X 10*3/uL (0.20-1.00); Monocytes % (A) 6.3 %; Neutrophils # (A) 6.91 X 10*3/uL (1.80-7.70); Neutrophils % (A) 79.4 %
[2024-02-13 08:39] LABS: BUN/Creat Ratio 10.82 Ratio (12.00-20.00); Blood Urea Nitrogen 11.9 mg/dL (9.0-27.0); Calcium 8.1 mg/dL (8.7-10.3); Carbon Dioxide 22.9 mmol/L (21.6-31.8); Chloride 108 mmol/L (96-109); Glucose 107 mg/dL (70-110); Sodium 141 mmol/L (135-145)
[2024-02-13] MEDS: diazePAM 5 MG TAB PO PRN (08:53)
[2024-02-13] MEDS ORDERED: NON FORMULARY DRUG (Biotin [Biotin] 5 MG Capsule) PO SCH (09:00)
[2024-02-13] MEDS: buPROPion XL 300 MG TAB.ER.24H PO SCH (09:10)
[2024-02-13] MEDS: SENNOSIDES-DOCUSATE SODIUM 1 EACH TAB PO SCH (09:10)
[2024-02-13] MEDS: LOSARTAN 50 MG TAB PO SCH (09:10)
[2024-02-13] MEDS: amLODIPine 10 MG TAB PO SCH (09:10)
[2024-02-13] MEDS: MULTIVITAMINS, THERA 1 EACH TAB PO SCH (09:10)
[2024-02-13] MEDS: ASPIRIN 81 MG PO SCH (09:10)
--- NOTE | 2024-02-13 10:24 | P.PN ---
Progress Note - Text Progress Note Date: 02/13/24 Orthopedic Spine: History of present illness: Patient is a pleasant 63-year-old female who is seen and examined at the bedside following posterior lateral decompression and fusion performed yesterday. Patient states they are doing ok post operatively. She does have significant pain at the surgical sites at her lumbar spine but states her pain is being controlled with IV and oral medications. Currently does not complain of nausea, vomiting, fever, or chills. Patient is eating without difficulty. She is currently working with physical therapy and is ambulating the hallways with the assistance of a walker. She will need a walker for home use. Horton catheter was discontinued this morning. She has not been able to void independently yet. Consultation has been placed with medicine for postoperative medical management for her multiple other medical diagnoses Physical Exam Lumbar Fusion: Status post surgical day number Patient is awake, alert, and oriented 3 Vital signs stable Good chest excursion with deep inspiration and expiration Abdomen soft nontender Dorsiflexion, plantarflexion, and extensor hallucis longus positive sustained bilaterally No signs or symptoms of DVT; no calf pain; pneumatic cuffs not currently intact bilateral lower extremities Patient is currently standing at the bedside and ambulating with physical therapy Optifoam dressings are dry and intact over the lumbar spine and right iliac crest with 1 small spot of dried blood; no erythema, purulence, or signs of infection Neurovascularly intact bilaterally lower extremities Assessment: Status post L3-4, L4-5, and L5-S1 minimally invasive posterior lateral decompression and fusion with transforaminal lumbar interbody fusion Low back pain Degenerative scoliosis Lumbar spondylolisthesis L3-4, L4-5, and L5-S1 spinal stenosis Lumbar facet spondylosis Lower extremity radiculopathy L3-4, L4-5, and L5-S1 herniated nucleus pulposus Hypertension Hyperlipidemia Hypothyroidism Lung cancer Unsteady gait Plan: 1. Ambulate as tolerated; work with Physical Therapy to increase mobilization; prescription for a walker is written, signed, and provided to case management to obtain a walker for home use at the time of discharge 2. Continue pain control with IV and oral medications; will plan to begin weaning the patient off of IV narcotic medication in anticipation for discharge home in the next 1-2 days. We did discuss the patient's most likely earliest discharge home would be this coming 02/15/2024 3. Dressings to remain intact with Optifoam; patient may shower with dressings intact 4. Medical management can continue to manage patient for patient's other medical diagnoses 5. We will continue to follow the patient closely. 6. Patient can follow-up with Devan Dhillon PA-C or Dr. Hussein Werner at [facility] in 2-3 weeks following discharge
[2024-02-13] MEDS: DULoxetine HCL 30 MG CAPSULE.DR PO SCH (10:40)
[2024-02-13] MEDS: CYCLOBENZAPRINE 10 MG TAB PO PRN (15:33)
--- NOTE | 2024-02-14 08:51 | P.PN ---
Progress Note - Text Progress Note Date: 02/14/24 Orthopedic Spine: History of present illness: Patient is a pleasant 63-year-old female who is seen and examined at the bedside following posterior lateral decompression and fusion performed Saturday. Patient states they are doing ok post operatively. She does have significant pain at the surgical sites at her lumbar spine but states her pain is being controlled with IV and oral medications. She states she does experience increased left lower extremity leg pain when standing on her left lower extremity. She mobilizes better throughout the day does have some difficulty with mobilization during the night. Currently does not complain of nausea, vomiting, fever, or chills. Patient is eating without difficulty. She is currently working with physical therapy and is ambulating the hallways with the assistance of a walker. She will need a walker for home use. A prescription was written for a walker yesterday. This has been delivered to her in her room. Horton catheter was previously discontinued. Patient has been unable to void independently. She required straight catheterization. Horton catheter has been reinserted. She will currently remain on bladder rest until tomorrow morning, 02/15/2024. Consultation has been placed with medicine for postoperative medical management for her multiple other medical diagnoses. Patient would still like to be discharged home at the time of discharge. Physical Exam Lumbar Fusion: Status post surgical day number 2 Patient is awake, alert, and oriented 3 Vital signs stable Good chest excursion with deep inspiration and expiration Abdomen soft nontender Dorsiflexion, plantarflexion, and extensor hallucis longus positive sustained bilaterally No signs or symptoms of DVT; no calf pain; pneumatic cuffs not currently intact bilateral lower extremities Patient is currently standing at the bedside and ambulating with physical therapy Optifoam dressings are dry and intact over the lumbar spine and right iliac crest with 1 small spot of dried blood; no erythema, purulence, or signs of infection Neurovascularly intact bilaterally lower extremities Horton catheter intact Assessment: Status post L3-4, L4-5, and L5-S1 minimally invasive posterior lateral decompression and fusion with transforaminal lumbar interbody fusion Postoperative urinary retention Low back pain Degenerative scoliosis Lumbar spondylolisthesis L3-4, L4-5, and L5-S1 spinal stenosis Lumbar facet spondylosis Lower extremity radiculopathy L3-4, L4-5, and L5-S1 herniated nucleus pulposus Hypertension Hyperlipidemia Hypothyroidism Lung cancer Unsteady gait Plan: 1. Ambulate as tolerated; work with Physical Therapy to increase mobilization; prescription for a walker is written, signed, and provided to case management to obtain a walker for home use at the time of discharge. Patient will need a walker at the time of discharge to safely and efficiently ambulate and mobilize throughout her home and public status post lumbar fusion. Walker was delivered to the patient's room yesterday. 2. Continue pain control with IV and oral medications; will plan to begin weaning the patient off of IV narcotic medication in anticipation for discharge home in the next 1-2 days. We did discuss the patient's most likely earliest discharge home would be this coming 02/15/2024. MAPS has been reviewed today, 02/14/2024. An "Opiod Start Talking" Form has been signed and placed in the patient's chart. A prescription has been written for hydrocodone 10 mg / 325 mg, 1 tab, every 6 hours, as needed for acute pain, dispense #28. Prescription written for cyclobenzaprine, 10 mg, 1 tab, 3 times daily, as needed for muscle spasm, dispense #60. Prescription also written for Senokot-S, 1 tab, twice daily, as needed for constipation, dispense #60. Prescriptions are sent to the patient's pharmacy per her request. 3. Dressings to remain intact with Optifoam; patient may shower with dressings intact 4. Medical management can continue to manage patient for patient's other medical diagnoses 5. Patient's Horton catheter will remain intact. She will be on bladder rest until tomorrow. We will plan to discontinue Horton catheter at 8 AM tomorrow, 02/15/2024 for voiding trial. If she is unable to void independently, we will consider reinsertion of Horton catheter with consult to urology. 6. We will continue to follow the patient closely. 7. Patient can follow-up with Devan Dhillon PA-C or Dr. Hussein Werner at [facility] in 2-3 weeks following discharge
--- NOTE | 2024-02-15 04:03 | P.PN ---
Subjective Progress Note Date: 02/14/24 This is a 63-year-old female who was recently admitted under orthopedic services and underwent posterior lateral decompression and fusion 2 days ago being closely monitored. Patient is currently sitting up in the chair and reports severe neck and back pain with some spasms. Per patient and nursing staff she experienced some urinary retention requiring indwelling Horton catheter and will continue for now will trial void in the a.m. Patient reports she is not passed much flatus and denies any bowel movement as of yet. Continue with bowel regimen and stool softeners along with increased activity as tolerated with restrictions per orthopedics. Patient reports plan is for patient to return home and has support in the home. Patient follows with [employer] Anisa Montejo in the outpatient setting in [facility] with a past medical history of asthma/COPD, lung cancer in 2020 involving surgery along with chemoradiation, history of cerebral aneurysm 2 years ago with a brain bleed that had resolved, hyperlipidemia, hypertension, thyroid disorder, anxiety/depression. Patient reports she did undergo presurgical clearance prior to the surgery. Patient has incentive spirometer at the bedside and encouraged patient to continue using at least 10 times every hour while awake. Review of systems: Constitutional: No reports of fatigue, fever, or chills Cardiovascular: No reports of chest pain or palpitations Respiratory: No reports of shortness of breath or cough GI: No reports of nausea, no reports of vomiting, not passing gas yet and no bowel movement : No reports of dysuria, reports retention requiring a Horton Neurovascular: reports of generalized weakness, and continued neck and back pain All medications have been reviewed PHYSICAL EXAMINATION: GENERAL: The patient is alert and oriented x4, Well developed, well nourished. Obese HEENT: Pupils are round and equally reacting to light. EOMI. no scleral icterus. No conjunctival pallor. Normocephalic, atraumatic. No pharyngeal erythema. No thyromegaly. CARDIOVASCULAR: S1 and S2 muffled PULMONARY: diminished breath sounds bilaterally with no wheezing or rhonchi noted. ABDOMEN: soft. Nontender on exam. obese. non-distended, normoactive bowel sounds. No palpable organomegaly. MUSCULOSKELETAL: No joint swelling or deformity. EXTREMITIES: No cyanosis, clubbing, or pedal edema. NEUROLOGICAL: Gross neurological examination did not reveal any focal deficits. Diffuse weakness SKIN: No rashes. Assessment: Status post posterior lateral decompression and fusion of L3-4 through S1 spinal stenosis and lower extremity radiculopathy Urinary retention requiring indwelling Horton catheter History of asthma/COPD, not in exacerbation History of lung cancer in 2020 with surgery along with chemo and radiation History of cerebral aneurysm with a brain bleed that had resolved status post surgical clip placement History of anxiety/depression GERD Hyperlipidemia Hypertension Thyroid disorder Obesity with a BMI 31.1 GI prophylaxis DVT prophylaxis Full code Plan: Recommend to continue with current medications and management per orthopedic services. Patient is status post lateral decompression and fusion of L3-4 through S1 as patient had severe spinal stenosis with lower extremity radiculopathy spondylolisthesis as well as degenerative scoliosis Home medications reviewed and resumed as appropriate Encouraged incentive spirometer use at least 10 times every hour while awake Encourage sitting up in the chair frequently and increased activity as tolerated with restrictions per orthopedics Patient having severe pain and will be monitored overnight for pain management Continue bowel regimen Recommend trial void prior to discharge as patient was requiring indwelling Horton catheter overnight due to retention We will continue to follow with orthopedics during hospitalization. Thank you kindly for this consultation. The impression and plan of care has been dictated by Patricia Perdomo, nurse practitioner as directed. Dr. Johnathon MD I have performed a history and examination and MDM of this patient, discussed the same with the dictator, and agree with the dictator's assessment and plan as written ,documented as a scribe. Based on total visit time, I have performed more than 50% of the visit. Any additional findings or plans will be noted. Objective - Vital Signs Vital signs: Vital Signs Temp 98.6 F 02/14/24 07:18 Pulse 94 02/14/24 07:18 Resp 17 02/14/24 07:18 BP 164/97 02/14/24 07:18 Pulse Ox 98 02/14/24 02:00 FiO2 Intake & Output 02/13/24 02/14/24 02/14/24 18:59 06:59 18:59 Output Total 3300 200 2500 Balance -3300 -200 -2500 Output: Urine 3300 200 2500 Straight 1100 Other: Voiding Method Toilet Indwelling Catheter - Labs CBC & Chem 7: 02/13/24 03:46 02/13/24 03:46
--- NOTE | 2024-02-15 09:23 | P.PN ---
Subjective Progress Note Date: 02/15/24 Patient is a pleasant 63-year-old female who is seen and examined at the bedside following posterior lateral decompression and fusion performed Saturday. Patient states they continue to be doing ok post operatively. She does have moderate pain at the surgical sites at her lumbar spine but states her pain is being controlled with IV and oral medications. She states she does experience increased left lower extremity leg pain when standing on her left lower extremity. Currently does not complain of nausea, vomiting, fever, or chills. Patient is eating without difficulty. She is currently working with physical therapy and is ambulating the hallways with the assistance of a walker. She will need a walker for home use. A prescription was written for a walker. This has been delivered to her in her room. Horton catheter was previously discontinued. Patient has been unable to void independently. She required straight catheterization. Horton catheter has been reinserted. She will currently remain on bladder rest until tomorrow morning, 02/15/2024. Consultation has been placed with medicine for postoperative medical management for her multiple other medical diagnoses. Patient would still like to be discharged home at the time of discharge. 02/15/2024 progress: I spoke with nursing staff and the patient had no acute events overnight. Horton catheter was removed earlier this morning for void trial. Patient continues to have pain at the surgical sites which has been controlled with IV and oral pain medication. Objective - Vital Signs Vital signs: Vital Signs Temp 98.1 F 02/15/24 07:06 Pulse 76 02/15/24 07:06 Resp 17 02/15/24 07:06 BP 120/78 02/15/24 07:06 Pulse Ox 97 02/15/24 07:06 FiO2 Intake & Output 02/14/24 02/15/24 02/15/24 18:59 06:59 18:59 Output Total 3100 450 Balance -3100 -450 Output: Urine 3100 450 Other: Voiding Method Indwelling Catheter Indwelling Catheter - Exam Patient is awake, alert, and oriented 3. Dorsiflexion, plantarflexion, and extensor hallucis longus positive sustained bilaterally No signs or symptoms of DVT; no calf pain; pneumatic cuffs bilateral lower extremities. Patient is currently in bed. Optifoam dressings are dry and intact over the lumbar spine and right iliac crest with 1 small spot of dried blood; no erythema, purulence, or signs of infection. Neurovascularly intact bilaterally lower extremities - Labs CBC & Chem 7: 02/13/24 03:46 02/13/24 03:46 Assessment and Plan Assessment: Status post L3-4, L4-5, and L5-S1 minimally invasive posterior lateral decompression and fusion with transforaminal lumbar interbody fusion Postoperative urinary retention Low back pain Degenerative scoliosis Lumbar spondylolisthesis L3-4, L4-5, and L5-S1 spinal stenosis Lumbar facet spondylosis Lower extremity radiculopathy L3-4, L4-5, and L5-S1 herniated nucleus pulposus Hypertension Hyperlipidemia Hypothyroidism Lung cancer Unsteady gait Plan: Plan: Plan on staying tonight and reassess tomorrow. 1. Ambulate as tolerated; work with Physical Therapy to increase mobilization; prescription for a walker is written, signed, and provided to case management to obtain a walker for home use at the time of discharge. Patient will need a walker at the time of discharge to safely and efficiently ambulate and mobilize throughout her home and public status post lumbar fusion. Walker was delivered to the patient's room yesterday. 2. Continue pain control with IV and oral medications; will plan to begin weaning the patient off of IV narcotic medication in anticipation for discharge home in the next 1-2 days. We did discuss the patient's most likely earliest discharge home would be 02/16/2024. 3. Dressings to remain intact with Optifoam; patient may shower with dressings intact 4. Medical management can continue to manage patient for patient's other medical diagnoses 5. If she is unable to void independently, we will consider reinsertion of Horton catheter with consult to urology. 6. We will continue to follow the patient closely. 7. Patient can follow-up with Devan Dhillon PA-C or Dr. Hussein Werner at [facility] in 2-3 weeks following discharge
[2024-02-15 10:32] LABS: BUN/Creat Ratio 14.11 Ratio (12.00-20.00); Blood Urea Nitrogen 12.7 mg/dL (9.0-27.0); Calcium 8.4 mg/dL (8.7-10.3); Carbon Dioxide 19.7 mmol/L (21.6-31.8); Chloride 106 mmol/L (96-109); Glucose 128 mg/dL (70-110); Magnesium 2.2 mg/dL (1.5-2.4); Potassium 3.1 mmol/L (3.5-5.5); Sodium 137 mmol/L (135-145)
[2024-02-15] MEDS ORDERED: Potassium Replacement Protocol 1 EACH MISC MISCELLANE PRN (11:02)
[2024-02-15] MEDS: POTASSIUM CHLORIDE ER 20 MEQ TAB.ER PO SCH (11:52)
[2024-02-15] MEDS: TAMSULOSIN 0.4 MG CAP.ER.24H PO SCH (12:55)
--- NOTE | 2024-02-15 14:11 | P.PN ---
Subjective Progress Note Date: 02/15/24 This is a 63-year-old female who was recently admitted under orthopedic services and underwent posterior lateral decompression and fusion 2 days ago being closely monitored. Patient is currently sitting up in the chair and reports severe neck and back pain with some spasms. Per patient and nursing staff she experienced some urinary retention requiring indwelling Horton catheter and will continue for now will trial void in the a.m. Patient reports she is not passed much flatus and denies any bowel movement as of yet. Continue with bowel regimen and stool softeners along with increased activity as tolerated with restrictions per orthopedics. Patient reports plan is for patient to return home and has support in the home. Patient follows with [employer] Anisa Montejo in the outpatient setting in [facility] with a past medical history of asthma/COPD, lung cancer in 2019 involving surgery along with chemoradiation, history of cerebral aneurysm 2 years ago with a brain bleed that had resolved, hyperlipidemia, hypertension, thyroid disorder, anxiety/depression. Patient reports she did undergo presurgical clearance prior to the surgery. Patient has incentive spirometer at the bedside and encouraged patient to continue using at least 10 times every hour while awake. 02/14. Patient seen and examined. Blood work this morning showed potassium of 3.1, replacement ordered. Complaining of urine retention, started on Flomax REVIEW OF SYSTEMS: CONSTITUTIONAL: No fever, no malaise,. CARDIOVASCULAR: No chest pain, no palpitations, no syncope. PULMONARY: No shortness of breath, no cough, GASTROINTESTINAL: No diarrhea, no nausea, no vomiting, no abdominal pain. NEUROLOGICAL: No headaches, no weakness, PHYSICAL EXAMINATION: GENERAL: The patient is alert and oriented x3, not in any acute distress. Well developed, well nourished. HEENT: Pupils are round and equally reacting to light. EOMI. No scleral icterus. No conjunctival pallor. Normocephalic, atraumatic. No pharyngeal erythema. No t hyromegaly. CARDIOVASCULAR: S1 and S2 present. No murmurs, rubs, or gallops. PULMONARY: Chest is clear to auscultation, no wheezing or crackles. ABDOMEN: Soft, nontender, nondistended, normoactive bowel sounds. No palpable organomegaly. MUSCULOSKELETAL: No joint swelling or deformity. EXTREMITIES: No cyanosis, clubbing, or pedal edema. NEUROLOGICAL: Gross neurological examination did not reveal any focal deficits. SKIN: Lumbar area surgical incision seen Assessment and plan Status post posterior lateral decompression and fusion of L3-4 through S1 spinal stenosis and lower extremity radiculopathy Urinary retention requiring indwelling Horton catheter History of asthma/COPD, not in exacerbation History of lung cancer in 2019 with surgery along with chemo and radiation History of cerebral aneurysm with a brain bleed that had resolved status post surgical clip placement History of anxiety/depression GERD Hyperlipidemia Hypertension Thyroid disorder Obesity with a BMI 31.1 Urinary retention Monitor vital signs Monitor CBC Monitor CMP Continue aspirin, Norvasc, losartan Continue Synthroid Potassium replacement ordered Ordered Flomax Continue pain management per orthopedics Continue DVT prophylaxis per orthopedics Resume home meds PT and OT consulted Labs and medication were reviewed.. Continue same treatment. Continue with symptomatic treatment. Resume home medication. Monitor labs and vitals. DVT and GI prophylaxis. Further recommendations as per clinical course of the patient Dictation was produced using [employer] dictation software. please excuse any grammatical, word or spelling errors. Objective - Vital Signs Vital signs: Vital Signs Temp 98.1 F 02/15/24 07:06 Pulse 76 02/15/24 07:06 Resp 17 02/15/24 07:06 BP 120/78 02/15/24 07:06 Pulse Ox 97 02/15/24 07:06 FiO2 Intake & Output 02/14/24 02/15/24 02/15/24 18:59 06:59 18:59 Output Total 3100 450 Balance -3100 -450 Output: Urine 3100 450 Other: Voiding Method Indwelling Catheter Indwelling Catheter - Labs CBC & Chem 7: 02/13/24 03:46 02/15/24 04:23 Labs: Abnormal Lab Results - Last 24 Hours (Table) 02/15/24 Range/Units 04:23 Potassium 3.1 L (3.5-5.5) mmol/L Carbon Dioxide 19.7 L (21.6-31.8) mmol/L Glucose 128 H (70-110) mg/dL Calcium 8.4 L (8.7-10.3) mg/dL
[2024-02-15] MEDS: SENNOSIDES-DOCUSATE SODIUM 1 EACH TAB PO SCH (21:55)
[2024-02-15] MEDS: SODIUM CHLORIDE 0.9% 1,000 ML IV SCH (21:56)
[2024-02-16] MEDS: SODIUM CHLORIDE 0.9% 1,000 ML IV SCH (06:25)
--- NOTE | 2024-02-16 08:56 | P.PN ---
Subjective Progress Note Date: 02/16/24 Patient is a pleasant 63-year-old female who is seen and examined at the bedside following posterior lateral decompression and fusion performed Saturday. Patient states they continue to be doing ok post operatively. She does have moderate pain at the surgical sites at her lumbar spine but states her pain is being controlled with IV and oral medications. She states she does experience increased left lower extremity leg pain when standing on her left lower extremity. Currently does not complain of nausea, vomiting, fever, or chills. Patient is eating without difficulty. She is currently working with physical therapy and is ambulating the hallways with the assistance of a walker. She will need a walker for home use. A prescription was written for a walker. This has been delivered to her in her room. Horton catheter was previously discontinued. Patient has been unable to void independently. She required straight catheterization. Horton catheter has been reinserted. She will currently remain on bladder rest until tomorrow morning, 02/15/2024. Consultation has been placed with medicine for postoperative medical management for her multiple other medical diagnoses. Patient would still like to be discharged home at the time of discharge. 02/15/2024 progress: I spoke with nursing staff and the patient had no acute events overnight. Horton catheter was removed earlier this morning for void trial. Patient continues to have pain at the surgical sites which has been controlled with IV and oral pain medication. 02/16/2024 progress: I spoke with nursing staff and the patient had no acute events overnight. Horton catheter had to be placed again due to urinary retention, urology was consulted. Patient continues to have pain over the surgical sites which has been controlled with pain medication. Objective - Vital Signs Vital signs: Vital Signs Temp 97.8 F 02/16/24 01:02 Pulse 90 02/16/24 01:02 Resp 14 02/16/24 01:02 BP 130/78 02/16/24 01:02 Pulse Ox 96 02/16/24 01:02 FiO2 Intake & Output 02/15/24 02/16/24 02/16/24 18:59 06:59 18:59 Output Total 400 750 Balance -400 -750 Output: Urine 400 750 Straight 200 Other: Voiding Method Indwelling Catheter # Voids 0 - Exam Patient is awake, alert, and oriented 3. Dorsiflexion, plantarflexion, and extensor hallucis longus positive sustained bilaterally No signs or symptoms of DVT; no calf pain; pneumatic cuffs bilateral lower extremities. Patient is currently sitting in chair. 3 surgical dressings are over the lumbar spine with 1 small spot of strikethrough, no surrounding erythema, no active drainage, no signs of infection. 1 dressing is starting to come off, spoke to nursing staff to reinforce or replace as needed. Neurovascularly intact bilaterally lower extremities - Labs CBC & Chem 7: 02/13/24 03:46 02/15/24 04:23 Labs: Abnormal Lab Results - Last 24 Hours (Table) 02/15/24 Range/Units 04:23 Potassium 3.1 L (3.5-5.5) mmol/L Carbon Dioxide 19.7 L (21.6-31.8) mmol/L Glucose 128 H (70-110) mg/dL Calcium 8.4 L (8.7-10.3) mg/dL Assessment and Plan Assessment: Status post L3-4, L4-5, and L5-S1 minimally invasive posterior lateral decompression and fusion with transforaminal lumbar interbody fusion Postoperative urinary retention Low back pain Degenerative scoliosis Lumbar spondylolisthesis L3-4, L4-5, and L5-S1 spinal stenosis Lumbar facet spondylosis Lower extremity radiculopathy L3-4, L4-5, and L5-S1 herniated nucleus pulposus Hypertension Hyperlipidemia Hypothyroidism Lung cancer Unsteady gait Plan: Plan: Plan on staying tonight and reassess tomorrow. 1. Ambulate as tolerated; work with Physical Therapy to increase mobilization; prescription for a walker is written, signed, and provided to case management to obtain a walker for home use at the time of discharge. Patient will need a walker at the time of discharge to safely and efficiently ambulate and mobilize throughout her home and public status post lumbar fusion. Walker was delivered to the patient's room yesterday. 2. Continue pain control with IV and oral medications; will plan to begin weaning the patient off of IV narcotic medication in anticipation for discharge home in the next 1-2 days. We did discuss the patient's most likely earliest discharge home would be 02/16/2024. 3. Dressings to remain intact with Optifoam; patient may shower with dressings intact 4. Medical management can continue to manage patient for patient's other medical diagnoses 5. If she is unable to void independently, we will consider reinsertion of Horton catheter with consult to urology. 6. We will continue to follow the patient closely. 7. Patient can follow-up with Devan Dhillon PA-C or Dr. Hussein Werner at [facility] in 2-3 weeks following discharge
--- NOTE | 2024-02-16 10:16 | P.GSCN ---
History of Present Illness Consult date: 02/16/24 History of present illness: 63 yo female who recently underwent lumbar disc surgery by Dr Werner. SHe has had problems emptying her bladder and catheter was placed And replaced 2 . she did not feel full upon catheterization. We were asked to see the patient.she has not had any problems with voiding preoperatively. There is been no infections hematuria or incontinence. Review of Systems All systems: negative - Constitutional Denies fever, Denies weight loss - EENT Eyes: denies blurred vision Ears, nose, mouth and throat: Denies dysphagia - Cardiovascular Denies chest pain, Denies shortness of breath - Respiratory Denies cough, Denies 7 - Gastrointestinal Reports as per HPI - Genitourinary Genitourinary: Denies dysuria, Denies hematuria - Integumentary Denies rash, Denies unusual bruising - Neurological Denies headaches, Denies syncope - Hematologic/Lymphatic Denies easy bleeding, Denies easy bruising Past Medical History Past Medical History: Asthma, Cancer, COPD, GERD/Reflux, Hyperlipidemia, Hypertension, Osteoarthritis (OA), Thyroid Disorder Additional Past Medical History / Comment(s): lung cancer 2019-had surgery, chemo & radiation, hx. cerebral aneurysm 2 yrs. ago-had surg. w/clip, had brain bleed post-op but all resolved History of Any Multi-Drug Resistant Organisms: None Reported Past Surgical History: Breast Surgery, Hysterectomy, Orthopedic Surgery, Tubal Ligation Additional Past Surgical History / Comment(s): RT BREAST BX X 2. BILAT BUNIONECTOMY. THYROIDECTOMY. Lung biopsy. right lobectomy Past Anesthesia/Blood Transfusion Reactions: Motion Sickness, Postoperative Nausea & Vomiting (PONV) Smoking Status: Former smoker - Past Family History Mother Family Medical History: Cancer Medications and Allergies Home Medications Medication Instructions Recorded Confirmed Type Levothyroxine Sodium [Synthroid] 112 mcg PO DAILY 08/30/16 02/12/24 History amLODIPine [Norvasc] 10 mg PO DAILY 08/30/16 02/12/24 History Sennosides/Docusate Sodium 1 tab PO HS PRN 02/24/20 02/12/24 History [Senna-S 8.6-50 mg Tablet] Aspirin [[place] Aspirin EC] 81 mg PO DAILY 02/06/24 02/12/24 History Biotin 5 mg PO DAILY 02/06/24 02/12/24 History Cyclobenzaprine [Flexeril] 10 mg PO TID 02/06/24 02/12/24 History DULoxetine HCL [Cymbalta] 30 mg PO DAILY 02/06/24 02/12/24 History Losartan Potassium [Cozaar] 100 mg PO DAILY 02/06/24 02/12/24 History Melatonin 10 mg PO HS 02/06/24 02/12/24 History Multivitamins, Thera [Multivitamin 1 tab PO DAILY 02/06/24 02/12/24 History (formulary)] Rosuvastatin [Crestor] 10 mg PO HS 02/06/24 02/12/24 History Topiramate [Topamax] 100 mg PO HS 02/06/24 02/12/24 History buPROPion XL [Wellbutrin XL] 300 mg PO DAILY 02/06/24 02/12/24 History Cyclobenzaprine [Flexeril] 10 mg PO TID PRN #60 tab 02/14/24 Rx HYDROcodone/APAP 10-325MG [[place] 1 each PO Q6H PRN #28 tab 02/14/24 Rx 10] Sennosides-Docusate Sodium 1 tab PO BID PRN #60 tablet 02/14/24 Rx [Senokot-S] Allergies Allergy/AdvReac Type Severity Reaction Status Date / Time No Known Allergies Allergy Verified 02/12/24 07:12 Surgical - Exam Vital Signs Temp Pulse Resp BP Pulse Ox 97.4 F L 81 16 137/80 97 02/12/24 07:15 02/12/24 07:15 02/12/24 07:15 02/12/24 07:15 02/12/24 07:15 Results - Labs 02/13/24 03:46 02/15/24 04:23 Abnormal Lab Results - Last 24 Hours (Table) 02/15/24 Range/Units 04:23 Potassium 3.1 L (3.5-5.5) mmol/L Carbon Dioxide 19.7 L (21.6-31.8) mmol/L Glucose 128 H (70-110) mg/dL Calcium 8.4 L (8.7-10.3) mg/dL Diabetes panel 02/15/24 Range/Units 04:23 Sodium 137 (135-145) mmol/L Potassium 3.1 L (3.5-5.5) mmol/L Chloride 106 (96-109) mmol/L Carbon Dioxide 19.7 L (21.6-31.8) mmol/L BUN 12.7 (9.0-27.0) mg/dL Creatinine 0.9 (0.6-1.5) mg/dL Glucose 128 H (70-110) mg/dL Calcium 8.4 L (8.7-10.3) mg/dL Calcium panel 02/15/24 Range/Units 04:23 Calcium 8.4 L (8.7-10.3) mg/dL Pituitary panel 02/15/24 Range/Units 04:23 Sodium 137 (135-145) mmol/L Potassium 3.1 L (3.5-5.5) mmol/L Chloride 106 (96-109) mmol/L Carbon Dioxide 19.7 L (21.6-31.8) mmol/L BUN 12.7 (9.0-27.0) mg/dL Creatinine 0.9 (0.6-1.5) mg/dL Glucose 128 H (70-110) mg/dL Calcium 8.4 L (8.7-10.3) mg/dL Adrenal panel 02/15/24 Range/Units 04:23 Sodium 137 (135-145) mmol/L Potassium 3.1 L (3.5-5.5) mmol/L Chloride 106 (96-109) mmol/L Carbon Dioxide 19.7 L (21.6-31.8) mmol/L BUN 12.7 (9.0-27.0) mg/dL Creatinine 0.9 (0.6-1.5) mg/dL Glucose 128 H (70-110) mg/dL Calcium 8.4 L (8.7-10.3) mg/dL Assessment and Plan Assessment: Impression: incomplete bladder emptying post op lumbar spine surgery Recommendations: The urine retention could be due to immobility and pain versus neurological irritation post surgical. Regardless I would recommend leaving the catheter in for about one week and then see her in the office for a voiding trial. This is been discussed understood and accepted by the patient.
--- NOTE | 2024-02-16 12:45 | P.PN ---
Subjective Progress Note Date: 02/16/24 This is a 63-year-old female who was recently admitted under orthopedic services and underwent posterior lateral decompression and fusion 2 days ago being closely monitored. Patient is currently sitting up in the chair and reports severe neck and back pain with some spasms. Per patient and nursing staff she experienced some urinary retention requiring indwelling Horton catheter and will continue for now will trial void in the a.m. Patient reports she is not passed much flatus and denies any bowel movement as of yet. Continue with bowel regimen and stool softeners along with increased activity as tolerated with restrictions per orthopedics. Patient reports plan is for patient to return home and has support in the home. Patient follows with DIAGNOSTIC TECHNOLOGIST Anisa Montejo in the outpatient setting in [facility] with a past medical history of asthma/COPD, lung cancer in 2019 involving surgery along with chemoradiation, history of cerebral aneurysm 2 years ago with a brain bleed that had resolved, hyperlipidemia, hypertension, thyroid disorder, anxiety/depression. Patient reports she did undergo presurgical clearance prior to the surgery. Patient has incentive spirometer at the bedside and encouraged patient to continue using at least 10 times every hour while awake. 02/14. Patient seen and examined. Blood work this morning showed potassium of 3.1, replacement ordered. Complaining of urine retention, started on Flomax 02/15. Patient seen and examined, urology eval the patient for urine retention, recommend keeping Horton in patient for 1 week with outpatient follow-up. REVIEW OF SYSTEMS: CONSTITUTIONAL: No fever, no malaise,. CARDIOVASCULAR: No chest pain, no palpitations, no syncope. PULMONARY: No shortness of breath, no cough, GASTROINTESTINAL: No diarrhea, no nausea, no vomiting, no abdominal pain. NEUROLOGICAL: No headaches, no weakness, PHYSICAL EXAMINATION: GENERAL: The patient is alert and oriented x3, not in any acute distress. Well developed, well nourished. HEENT: Pupils are round and equally reacting to light. EOMI. No scleral icterus. No conjunctival pallor. Normocephalic, atraumatic. No pharyngeal erythema. No thyromegaly. CARDIOVASCULAR: S1 and S2 present. No murmurs, rubs, or gallops. PULMONARY: Chest is clear to auscultation, no wheezing or crackles. ABDOMEN: Soft, nontender, nondistended, normoactive bowel sounds. No palpable organomegaly. MUSCULOSKELETAL: No joint swelling or deformity. EXTREMITIES: No cyanosis, clubbing, or pedal edema. NEUROLOGICAL: Gross neurological examination did not reveal any focal deficits. SKIN: Lumbar area surgical incision seen Assessment and plan Status post posterior lateral decompression and fusion of L3-4 through S1 spinal stenosis and lower extremity radiculopathy Urinary retention requiring indwelling Horton catheter History of asthma/COPD, not in exacerbation History of lung cancer in 2020 with surgery along with chemo and radiation History of cerebral aneurysm with a brain bleed that had resolved status post surgical clip placement History of anxiety/depression GERD Hyperlipidemia Hypertension Thyroid disorder Obesity with a BMI 31.1 Urinary retention Monitor vital signs Monitor CBC Monitor CMP Continue aspirin, Norvasc, losartan Continue Synthroid Potassium replacement ordered Continue Flomax Continue pain management per orthopedics Continue DVT prophylaxis per orthopedics Urology recommend keeping Horton in with outpatient evaluation PT and OT following Labs and medication were reviewed.. Continue same treatment. Continue with symptomatic treatment. Resume home medication. Monitor labs and vitals. DVT and GI prophylaxis. Further recommendations as per clinical course of the patient Dictation was produced using [employer] dictation software. please excuse any grammatical, word or spelling errors. Objective - Vital Signs Vital signs: Vital Signs Temp 97.8 F 02/16/24 07:50 Pulse 90 02/16/24 07:50 Resp 16 02/16/24 07:50 BP 128/79 02/16/24 07:50 Pulse Ox 96 02/16/24 07:50 FiO2 Intake & Output 02/15/24 02/16/24 02/16/24 18:59 06:59 18:59 Output Total 400 750 Balance -400 -750 Output: Urine 400 750 Straight 200 Other: Voiding Method Indwelling Catheter Indwelling Catheter # Voids 0 - Labs CBC & Chem 7: 02/13/24 03:46 02/15/24 04:23
[2024-02-16 16:41] LABS: Basophils % (A) 0 %; Eosinophils # (A) 0.2 k/uL (0-0.7); Eosinophils % (A) 5 %; HCT 32.3 % (34.0-46.0); HGB 10.4 gm/dL (11.4-16.0); Lymphocytes # (A) 0.9 k/uL (1.0-4.8); Lymphocytes % (A) 20 %; MCH 31.4 pg (25.0-35.0); MCHC 32.3 g/dL (31.0-37.0); MCV 97.2 fL (80.0-100.0); Mean Platelet Volume 8.6; Monocytes # (A) 0.2 k/uL (0-1.0); Monocytes % (A) 5 %; Neutrophils % (A) 68 %; Platelet Count 185 k/uL (150-450); RBC 3.32 m/uL (3.80-5.40); RDW 12.5 % (11.5-15.5); WBC 4.5 k/uL (3.8-10.6)
[2024-02-16 16:53] LABS: African American GFR (CKD) 83 (>60 ml/min/1.73 sqM); Anion Gap 6 mmol/L; Blood Urea Nitrogen 14 mg/dL (7-17); Calcium 8.2 mg/dL (8.4-10.2); Carbon Dioxide 22 mmol/L (22-30); Chloride 110 mmol/L (98-107); Glucose 126 mg/dL (74-99); Non-African American GFR(CKD) 72 (>60 ml/min/1.73 sqM); Potassium 3.4 mmol/L (3.5-5.1); Sodium 138 mmol/L (137-145)
[2024-02-16] MEDS ORDERED: Potassium Replacement Protocol 1 EACH MISC MISCELLANE PRN (17:24)
[2024-02-16] MEDS: POTASSIUM CHLORIDE ER 20 MEQ TAB.ER PO SCH ×2 (17:42→21:27)
[2024-02-17 07:25] VITALS: BP 150/91; PULSE 93; RESP 15; TEMP 98.1
--- NOTE | 2024-02-17 11:10 | P.DS ---
Providers Date of admission: 02/13/24 14:21 Expected date of discharge: 02/17/24 Attending physician: Luisito Werner Consults: 02/12/24 15:53 Consult Physician Routine Consulting Provider: Dionicio Domingo Consult Reason/Comments: medical management Do you want consulting provider notified?: Yes 02/15/24 19:04 Consult Physician Routine Consulting Provider: Jonathon Jaime Consult Reason/Comments: urinary retention. Do you want consulting provider notified?: Yes Primary care physician: Stated None - Discharge Diagnosis(es) (1) Lumbar spinal stenosis Current Visit: Yes Status: Acute (2) Lumbar degenerative disc disease Current Visit: Yes Status: Acute (3) Lumbar facet arthropathy Current Visit: Yes Status: Acute (4) Lumbar herniated disc Current Visit: Yes Status: Acute (5) Lumbar back pain with radiculopathy affecting lower extremity Current Visit: Yes Status: Acute (6) Degenerative scoliosis Current Visit: Yes Status: Acute (7) Spondylolisthesis, lumbar region Current Visit: Yes Status: Acute (8) Hypertension Current Visit: Yes Status: Acute (9) Hyperlipidemia Current Visit: Yes Status: Acute (10) Hypothyroidism Current Visit: Yes Status: Acute (11) History of lung cancer Current Visit: Yes Status: Acute Hospital Course: This is a pleasant 63-year-old female who presented with degenerative scoliosis, lumbar spondylolisthesis, low back pain, lumbar facet spondylosis, lower ext remity radiculopathy, and L3-4, L4-5, and L5-S1 spinal stenosis with herniated nucleus pulposus who failed outpatient conservative therapy. She was admitted for an L3-4, L4-5, and L5-S1 minimally invasive posterior lateral decompression and fusion with transforaminal lumbar interbody fusion. The patient tolerated the procedure well and did well postoperatively. She has continued to progress over the weekend in terms of her mobility and pain control. She does feel she is ready for discharge today. Condition on day of discharge stable. Patient will be discharged home. Patient currently denies any nausea, vomiting, fever, or chills. Patient is eating without difficulty. Patient has not had a bowel movement but is passing gas. She denies any abdominal pain. Her belly is soft nontender. Surgical Optifoam dressings have been removed. Surgical incision sites are clean, dry, and intact. Patient may shower without a dressing at this time. Patient should refrain from driving until at least after their first follow-up appointment in the office. Patient should avoid excessive bending, lifting, and twisting; no lifting greater than 10 pounds. Patient has had difficulty with urinary retention postoperatively. Horton catheter was previously discontinued. She required straight catheterization. Horton catheter has been reinserted. She was seen by urology. Patient will be discharged home with Horton catheter intact. She will be scheduled for follow-up evaluation with Dr. Lopez in urology in 1 week. MAPS was previously reviewed. An "Opiod Start Talking" Form has been signed and placed in the patient's chart. A prescription has been written for hydrocodone 10 mg / 325 mg, 1 tab, every 6 hours as needed for acute pain, dispense #28. Prescription written for cyclobenzaprine 10 mg, 1 tab, 3 times daily, as needed for muscle spasm, dispense #60. Prescription for Senokot-S, 1 tab, twice daily, as needed for constipation, dispense #60. These prescriptions are sent to the patient's pharmacy per her request. Patient's other medical diagnoses include hypertension, hyperlipidemia, hypothyroidism, and history of lung cancer. Patient will need clearance by medicine prior to discharge home today. Physical Exam on day of discharge: Patient is awake, alert, and oriented 3 Vital signs stable Good chest excursion with deep inspiration and expiration Abdomen soft nontender Extensor hallucis longus, plantarflexion, and dorsiflexion positive sustained bilateral lower extremities Surgical incision sites are clean, dry, and intact; no erythema, purulence, or signs of infection Optifoam dressings are removed during physical examination Procedures: L3-4, L4-5, and L5-S1 minimally invasive posterior lateral decompression and fusion with transforaminal lumbar interbody fusion Patient Condition at Discharge: Stable Plan - Discharge Summary Discharge Rx Participant: No New Discharge Prescriptions: New Cyclobenzaprine [Flexeril] 10 mg PO TID PRN #60 tab PRN Reason: Muscle Spasm HYDROcodone/APAP 10-325MG [[place] 10] 1 each PO Q6H PRN #28 tab PRN Reason: Pain Sennosides-Docusate Sodium [Senokot-S] 1 tab PO BID PRN #60 tablet PRN Reason: Constipation Continue amLODIPine [Norvasc] 10 mg PO DAILY Levothyroxine Sodium [Synthroid] 112 mcg PO DAILY Sennosides/Docusate Sodium [Senna-S 8.6-50 mg Tablet] 1 tab PO HS PRN PRN Reason: Constipation DULoxetine HCL [Cymbalta] 30 mg PO DAILY Cyclobenzaprine [Flexeril] 10 mg PO TID Multivitamins, Thera [Multivitamin (formulary)] 1 tab PO DAILY Melatonin 10 mg PO HS buPROPion XL [Wellbutrin XL] 300 mg PO DAILY Topiramate [Topamax] 100 mg PO HS Losartan Potassium [Cozaar] 100 mg PO DAILY Aspirin [[place] Aspirin EC] 81 mg PO DAILY Rosuvastatin [Crestor] 10 mg PO HS Biotin 5 mg PO DAILY Discontinued HYDROcodone/APAP 10-325MG [[place] 10-325] 1 tab PO DIRECTED PRN PRN Reason: Pain Discharge Medication List Levothyroxine Sodium [Synthroid] 112 mcg PO DAILY 08/30/16 [History] amLODIPine [Norvasc] 10 mg PO DAILY 08/30/16 [History] Sennosides/Docusate Sodium [Senna-S 8.6-50 mg Tablet] 1 tab PO HS PRN 02/24/20 [History] Aspirin [[place] Aspirin EC] 81 mg PO DAILY 02/06/24 [History] Biotin 5 mg PO DAILY 02/06/24 [History] Cyclobenzaprine [Flexeril] 10 mg PO TID 02/06/24 [History] DULoxetine HCL [Cymbalta] 30 mg PO DAILY 02/06/24 [History] Losartan Potassium [Cozaar] 100 mg PO DAILY 02/06/24 [History] Melatonin 10 mg PO HS 02/06/24 [History] Multivitamins, Thera [Multivitamin (formulary)] 1 tab PO DAILY 02/06/24 [History] Rosuvastatin [Crestor] 10 mg PO HS 02/06/24 [History] Topiramate [Topamax] 100 mg PO HS 02/06/24 [History] buPROPion XL [Wellbutrin XL] 300 mg PO DAILY 02/06/24 [History] Cyclobenzaprine [Flexeril] 10 mg PO TID PRN #60 tab 02/14/24 [Rx] HYDROcodone/APAP 10-325MG [[place] 10] 1 each PO Q6H PRN #28 tab 02/14/24 [Rx] Sennosides-Docusate Sodium [Senokot-S] 1 tab PO BID PRN #60 tablet 02/14/24 [Rx] Follow up Appointment(s)/Referral(s): Devan Dhillon PAC [PHYSICIAN PODIATRIST] - 03/02/24 1:00 pm (Patient may follow-up with Devan Dhillon PA-C or Dr. Hussein Werner at [facility] in 2-3 weeks following discharge. ) Marco A Lopez MD [STAFF PHYSICIAN] - 1 Week Activity/Diet/Wound Care/Special Instructions: 1. Patient may shower without Optifoam dressing intact. 2. Patient may utilize walker to aid in ambulation as needed 3. Patient should refrain from driving until at least after their first follow- up appointment in the office 4. Patient should avoid excessive bending, twisting, lifting; avoid overhead lifting; no lifting greater than 10 pounds 5. Take medications as prescribed 6. Patient should avoid anti-inflammatory medications over the next 6 weeks postoperatively 7. Patient will be discharged with Horton catheter intact and will follow-up with urology as scheduled 8. Do not soak in tub Discharge Disposition: HOME SELF-CARE
--- NOTE | 2024-02-20 10:37 | P.ANPRN ---
Procedure Note - Anesthesia - Invasive Line Left Arterial Line Time Out Performed: Yes Date of Procedure: 02/12/24 Time of Procedure: 08:21 Location of Patient: PreOp Preparation: Sterile Prep, Sterile Dressing Arterial Line Location: Briachial Ultrasound Used: No Purpose - Visualization and Identification of Vasculature: No Image Stored and Saved: No Narrative: Invasive line placement per sterile protocol utilized.
== END 2024-02-17 12:40 | disposition home or self-care (01) ==
LOC: OR 06:34 → 4SSUR 12:55 → OR 02-13 14:21 → 4SSUR 02-14 08:45
PROVIDERS: ADMIT Orthopaedic Surgery Orthopaedic Surgery of the Spine; ATTEND Orthopaedic Surgery Orthopaedic Surgery of the Spine
DX: M51.17 Intervertebral disc disorders with radiculopathy, lumbosacral region (principal); M51.16 Intervertebral disc disorders with radiculopathy, lumbar region; M48.061 Spinal stenosis, lumbar region without neurogenic claudication; M48.07 Spinal stenosis, lumbosacral region; M41.50 Other secondary scoliosis, site unspecified; R33.9 Retention of urine, unspecified; R26.81 Unsteadiness on feet; E89.0 Postprocedural hypothyroidism; K21.9 Gastro-esophageal reflux disease without esophagitis; I10 Essential (primary) hypertension; E78.5 Hyperlipidemia, unspecified; F32.A Depression, unspecified; F41.9 Anxiety disorder, unspecified; J44.9 Chronic obstructive pulmonary disease, unspecified; E66.9 Obesity, unspecified; Z68.31 Body mass index [BMI] 31.0-31.9, adult; Z85.118 Personal history of other malignant neoplasm of bronchus and lung; Z86.73 Personal history of transient ischemic attack (TIA), and cerebral infarction without residual deficits; Z87.891 Personal history of nicotine dependence; Z92.21 Personal history of antineoplastic chemotherapy; Z92.3 Personal history of irradiation; Z79.82 Long term (current) use of aspirin; Z79.890 Hormone replacement therapy; Z79.899 Other long term (current) drug therapy
CPT/HCPCS: 22630; 22632 ×2; 22853 ×3; 20939; 20931; 96376 ×5; 96360; 96361 ×2; 96365; 96366; 96375; 97116 ×2; 97161; 86891; 80048 ×3; 82805; 83735; 84132 ×2; 85025 ×2; 72100; G0378 ×5; G0379; P9022; C1713 ×2; C1762; J2250; J0330; J2710; J0690 ×2; J2405; J2003 ×2; J3010; J1171 ×6; J2704; J2371 ×2; J0665; J1596